=== PATIENT | female | born 1975 | race Caucasian/White ===

== ENCOUNTER 2020-04-01 21:54 | Emergency (ER) | payer OTHER, SELFPAY ==
--- NOTE | ~2020-04-01 | XR_ITS ---
XR abdomen/kub 1V DATE: 04/02/2020 00:48 INDICATION: Constipation TECHNIQUE: Portable supine AP view on 04/02/2020 at 0052 hours COMPARISON: None FINDINGS: There is a prominent amount of fecal material in the cecum, ascending colon, hepatic flexur e, transverse colon and splenic flexure. Findings are consistent with constipation. No apparent bowel obstruction or free air. The psoas shadows are intact. No visceromegaly or significant abnormal calcification is noted. Included skeletal structures are unremarkable. IMPRESSION: Prominent of fecal material within the colon, consistent with clinical complaint of const ipation Reviewed, dictated and finalized at [facility]. Reviewed, dictated and finalized at [facility]. IMPRESSION: Prominent of fecal material within the colon, consistent with clini venice complaint of constipation
--- NOTE | 2020-04-01 22:40 | ED.HA ---
HPI - Headache General Chief Complaint: Headache Stated Complaint: migrane Time Seen by Provider: 04/01/20 22:40 Source: patient and RN notes reviewed Mode of arrival: ambulatory Limitations: no limitations History of Present Illness HPI Narrative: patient complains of possible migraine. She says she has not urinated much and has problems with constipation. This could be due to her relapse with heroin in the last week. She is taking methadone also. She believes her constipation is from methadone. She went to another hospital where she became upset and left AMA prior to any treatment for her headache. She thinks she really does need some fluids. MD elicited complaint: migraine Pertinent past history: migraines Onset description: suddenly and while at rest Location: retro-orbital Severity: moderate Quality & Timing: throbbing and dull Exacerbating factors: none Relieving factors: nothing Context: occurred at rest Associated symptoms: nausea Treatments prior to arrival: none Related Data Home Medications Medication Instructions Recorded Confirmed clonidine HCl 0.3 mg PO TID 04/01/20 04/01/20 gabapentin 300 mg PO HS 04/01/20 04/01/20 ondansetron HCl [Zofran] 8 mg PO Q8H PRN 04/01/20 04/01/20 rizatriptan 10 mg PO ONCE 04/01/20 04/01/20 venlafaxine 150 mg PO DAILY 04/01/20 04/01/20 Allergies Allergy/AdvReac Type Severity Reaction Status Date / Time ceftriaxone [From Rocephin] Allergy Flushing Verified 04/01/20 23:02 cortisone Allergy Flushing Verified 04/01/20 23:02 levofloxacin [From Levaquin] Allergy Flushing Verified 04/01/20 23:02 tramadol Allergy Flushing Verified 04/01/20 23:02 Review of Systems Constitutional: Constitutional: Denies chills and Denies fever(s) Eyes: Eyes: Denies change in vision and Reports photophobia ENT: Reports dizziness Cardiovascular: Cardiovascular: Reports no additional cardiovascular complaints Respiratory: Respiratory: Reports no additional respiratory complaints Gastrointestinal: Gastrointestinal: Reports constipation, Denies diarrhea and Denies vomiting Comments: patient thinks the methadone is causing her constipation. Musculoskeletal: Musculoskeletal: Reports no additional musculoskeletal complaints Psychiatric: Psychiatric: Reports no additional psychiatric complaints Endocrine: Endocrine: Reports no additional endocrine complaints Hematologic/Lymphatic: Hematologic/Lymphatic: Reports no additional hematologic/lymphatic complaints [facility] Past Medical History Medical History (Updated 04/02/20 @ 03:35 by Catalino Dong MD) COPD (chronic obstructive pulmonary disease) Surgical History Surgical History (Updated 04/01/20 @ 22:58 by Catalino Dong MD) H/O knee surgery H/O: hysterectomy History of lumpectomy of left breast History of tonsillectomy Social History Social History (Updated 04/01/20 @ 22:57 by Catalino Dong MD) Smoking packs per day: 1.5 Smoking cigarettes per day: 30.0 Smoking status: Current every day smoker Tobacco type: cigarettes Alcohol intake: never Substance use: current Substance use type: heroin and IV drugs Exam Const: General: no acute distress and ill appearing Orientation/consciousness: patient oriented x3 HENMT: Head: normal to inspection Ears: external ears normal General nose exam: Normal external nose present Face and sinus: normal facial exam Mouth: Yes lip normal Eyes: Conjunctivae: conjunctivae normal Pupils: Equal, round and reactive pupils present EOM: EOMs intact bilaterally Direct Ophthalmoscopy: photophobia Neck: Neck: normal visual inspection Resp: Effort & Inspection: normal respiratory effort Auscultation: clear to auscultation bilaterally Cardio: Rate: regular rate Rhythm: regular rhythm Heart sounds: no murmurs GI: GI Palp: Yes Soft to palpation, Yes Tenderness to palpation present (GI) ( Mild generalized), No Guarding due to palpation present (GI) and No Rigid due to palp
[2020-04-01 22:52] VITALS: BP 154/84; PULSE 108; RESP 22; TEMP 36.9; O2SAT 98
[2020-04-02] MEDS: ONDANSETRON HCL ODT 4 MG TABLET PO (00:06)
--- NOTE | 2020-04-02 00:06 | PC.NURSE ---
IV attempted in [facility] arms & legs, unsucessful. patient has track perez in legs & arms used heroin today.
--- NOTE | 2020-04-02 00:25 | PC.NURSE ---
pedilyte given to patient, patient crying rocking on bed. reassurance given
--- NOTE | 2020-04-02 00:27 | PC.NURSE ---
patient pushed emergency light, standing on bed taking clock down, said it was making her head hurt & more nauseated.
[2020-04-02 00:32] VITALS: BP 140/84; PULSE 99; RESP 18; TEMP 36.2
--- NOTE | 2020-04-02 00:34 | PC.NURSE ---
0030patient turned on emergency light, wants to know she has the worst headache ever & everyone in her family has had brain anerysms 0035 MD with patient
--- NOTE | 2020-04-02 01:22 | PC.NURSE ---
0100 soap suds enema given
--- NOTE | 2020-04-02 01:24 | PC.NURSE ---
spouse updated on condition
--- NOTE | 2020-04-02 01:43 | PC.NURSE ---
0130 torodal 60mg IM left hip
--- NOTE | 2020-04-02 01:43 | PC.NURSE ---
2ns SSE given, small results from first SSE
--- NOTE | 2020-04-02 02:05 | PC.NURSE ---
ativan 1mg IM right gluteal
--- NOTE | 2020-04-02 02:06 | PC.NURSE ---
saline enema given
--- NOTE | 2020-04-02 02:46 | PC.NURSE ---
patient came out of bathroom, small BM, scant blood on toilet paper..started crying said I need my ran out the door.
[2020-04-02 03:00] VITALS: BP 130/77; PULSE 70; RESP 18; TEMP 36.1
--- NOTE | 2020-04-02 03:11 | PC.NURSE ---
0300 patient back in, small BM. Drinking soda, no nausea
--- NOTE | 2020-04-02 03:31 | PC.NURSE ---
several small BM's. drinking MD rudy with patient
[2020-04-02 03:40] VITALS: BP 144/60; PULSE 70; RESP 18; TEMP 36.9; O2SAT 95
== END 2020-04-02 03:31 | disposition home or self-care (01) ==
PROVIDERS: Emergency Provider Emergency Medicine
DX: K59.03 Drug induced constipation (principal)
CPT/HCPCS: 74018; 99282; 99283; A9270

== ENCOUNTER 2020-08-19 12:09 | Outpatient (CLI) | payer OTHER, SELFPAY ==
[2020-08-20 14:21] LABS: SARS-CoV-2 RNA PCR Negative
== END 2020-08-19 12:10 | disposition home or self-care (01) ==
LOC: CHSLAB 12:11
PROVIDERS: PCP Nurse Practitioner Family; Visit Provider Nurse Practitioner Family
DX: R50.9 Fever, unspecified (principal); Z20.828 Contact with and (suspected) exposure to other viral communicable diseases
CPT/HCPCS: 87635; C9803; U0003

== ENCOUNTER 2021-02-06 17:07 | Inpatient (IN) | payer OTHER, SELFPAY ==
--- NOTE | ~2021-02-06 | XR_ITS ---
EXAMINATION: XR chest 2V DATE: 02/06/2021 17:39 INDICATION: Vomiting. Fever. TECHNIQUE: Frontal and lateral views of the chest were obtained. COMPARISON: None. FINDINGS: There are lucencies in the upper lungs, consistent with emphysema. No pleural effusion or p neumothorax. The heart size is normal. Breast implants are noted. IMPRESSION: 1. Emphysema. Reviewed, dictated and finalized at location [facility]. IMPRESSION: 1. Emphysema.
--- NOTE | ~2021-02-06 | MR_ITS ---
EXAMINATION: MR lower leg RT wo con, MR femur RT wo con DATE: 02/08/2021 10:13 INDICATION: Multiple surgeries at the right leg with prior osteomyelitis presenting with nonhealing w ounds at the right calf. TECHNIQUE: 1. Magnetic resonance imaging (MRI) of the right thigh/femur was performed without intravenous contra st. Sequences included axial, sagittal and coronal T1-weighted FSE and fluid sensitive FSE STIR. 2. MRI of the right lower leg was performed without intravenous contrast. Sequences included axial, s agittal and coronal T1-weighted FSE and fluid sensitive FSE STIR. COMPARISON: None. FINDINGS: There is metallic magnetic field artifact surrounding a likely revision longstem right total knee art hroplasty. Where not obscured by the field artifact there is normal marrow signal throughout the femu r, tibia and fibula. No fracture or other lesions suspicious for osteomyelitis. There is scattered henao bcutaneous edema along the lateral aspect of the mid to distal right thigh extending across the knee and with more diffuse subcutaneous edema throughout the left calf. Bandaging material is seen at the sites of ulcerations along the anterior proximal lower leg along the medial aspect of the mid lower l eg. No abscess or evident involvement of the underlying musculature. No evident right knee or hip frankie nt effusions. A few small likely reactive right inguinal lymph nodes. IMPRESSION: 1. Subcutaneous edema along the lateral right thigh and about the right calf. No evident abscess or o steomyelitis. 2. Likely revision right total knee arthroplasty with metallic magnetic field artifact limiting evalu ation of the immediately adjacent bones and soft tissues. Although there does not appear to be a join t effusion or evident marrow signal changes to raise concern for osteomyelitis, would recommend corre lation with plain radiographs. Reviewed, dictated and finalized at location [facility]. IMPRESSION: 1. Subcutaneous edema along the lateral right thigh and about the right calf. N o evident abscess or osteomyelitis. 2. Likely revision right total knee arthroplasty with metallic magnetic field a rtifact limiting evaluation of the immediately adjacent bones and soft tissues. Although there does not appear to be a joint effusion or evident marrow signal changes to raise concern for osteomyelitis, would recommend correlation with p andrei radiographs.
[2021-02-06 17:15] VITALS: BP 153/93; PULSE 90; RESP 18; TEMP 36.6; O2SAT 95
--- NOTE | 2021-02-06 17:20 | ED.SKABFB ---
HPI - Skin/Abscess/Foreign Bdy General Chief complaint: Unspecified Stated complaint: sent by doctor for infection in legs Time Seen by Provider: 02/06/21 17:21 Source: patient Mode of arrival: ambulatory Limitations: no limitations History of Present Illness HPI narrative: 45-year-old woman with a history of injection drug use (opiates) comes in today complaining of draining wounds on her right lower leg. She states that week or 2 ago she was seen at [facility] in [place] prescribed sulfamethoxazole/trimethoprim. A culture was done at that time per the patient. She began to take the antibiotic but quit after a day or 2 because she began to have mouth swelling. The patient states she was instructed by the wound care clinic to come to the hospital for further evaluation and treatment. She states that she has had vomiting (but has been able to keep some things down) and is feeling feverish. MD complaint: abscess/boil Onset (ago): week(s) Tetanus up to date: unsure Location: RLE Severity: moderate Quality: sharp Pain Consistency: constant Relieving factors: none Exacerbating factors: palpation and movement Context: IVDA Associated symptoms: fever, nausea and vomiting Treatments prior to arrival: bandages and antibiotic Related Data Home Medications Medication Instructions Recorded Confirmed clonidine HCl 0.3 mg PO TID 04/01/20 02/06/21 venlafaxine [Effexor XR] 150 mg PO DAILY 04/01/20 02/06/21 linaclotide [Linzess] 290 mcg PO BID 02/06/21 02/06/21 Allergies Allergy/AdvReac Type Severity Reaction Status Date / Time ceftriaxone [From Rocephin] Allergy Flushing Verified 04/01/20 23:02 cortisone Allergy Flushing Verified 04/01/20 23:02 levofloxacin [From Levaquin] Allergy Flushing Verified 04/01/20 23:02 Sulfa (Sulfonamide Allergy Swelling Verified 02/06/21 17:29 Antibiotics) of Lip/Tongue/Throat tramadol Allergy Flushing Verified 04/01/20 23:02 Review of Systems Constitutional: Constitutional: Denies chills, Reports fever(s) and Denies weakness Eyes: Eyes: Denies change in vision and Denies photophobia ENT: Denies nasal congestion and Denies sore throat Cardiovascular: Cardiovascular: Denies chest pain and Denies radiating jaw, neck or arm pain Respiratory: Respiratory: Denies cough and Denies dyspnea Gastrointestinal: Gastrointestinal: Reports abdominal pain (epigastric), Reports nausea and Reports vomiting Genitourinary: Genitourinary: Denies nocturia and Denies dysuria Musculoskeletal: Musculoskeletal: Denies arthralgias and Denies joint swelling Integumentary/Breasts: Skin/Breast: Denies pruritus, Denies erythema and Denies rash Neurologic: Denies vertigo, Denies dizziness, Denies syncope, Denies focal weakness and Denies numbness Hematologic/Lymphatic: Hematologic/Lymphatic: Denies easy bleeding and Denies easy bruising Allergic/Immunologic: Allergic/Immunologic: Denies lip swelling, Denies throat swelling and Reports tongue swelling (after taking SMP/TMX) [facility] Past Medical History Medical History COPD (chronic obstructive pulmonary disease) Surgical History Surgical History H/O knee surgery H/O: hysterectomy History of lumpectomy of left breast History of tonsillectomy Social History Social History Smoking packs per day: 1.5 Smoking cigarettes per day: 30.0 Smoking status: Current every day smoker Tobacco type: cigarettes Alcohol intake: never Substance use: current Substance use type: heroin and IV drugs Gender identity (if verbalized by the patient): Male Exam Const: General: no acute distress and ill appearing chronically Orientation/consciousness: patient oriented x3 HENMT: Head: normal to inspection Ears: external ears normal, TM's normal bilaterally and EAC's normal Gen
--- NOTE | 2021-02-06 17:24 | PC.NURSE ---
called [facility] requesting copies of recent lab test, medical records closed & the washhouse worker stated she only had access to ED records and current inpatient records would have to call during business hours
--- NOTE | 2021-02-06 17:41 | PC.NURSE ---
opened home meds & list from [facility] was issued clindamycin today, patient lying about medications
[2021-02-06] MEDS: SODIUM CHLORIDE 0.9% IV 1,000 ML 999 ML IV CONT (18:00)
[2021-02-06 18:19] LABS: Basophils Absolute Auto 0.04 K/mm3 (0.00-0.10); Basophils Percent Auto 0.4 % (0.0-1.0); Eosinophils Absolute Auto 0.36 K/mm3 (0.02-0.50); Hematocrit 30.1 % (35.0-49.0); Hemoglobin 8.9 g/dL (12.0-15.0); Immature Granulocyte Absolute 0.02 K/mm3 (0.00-0.00); Immature Granulocyte Percent A 0.2 % (0.0-0.0); Lymphocytes Absolute Auto 3.17 K/mm3 (1.10-4.50); Lymphocytes Percent Auto 35.4 % (18.0-42.0); Mean Corpuscular HGB Conc 29.6 g/dL (32.0-36.0); Mean Corpuscular Hemoglobin 23.6 pg (27.0-31.0); Mean Corpuscular Volume 79.8 fL (78.0-102.0); Mean Platelet Volume 8.8 fl (9.2-11.8); Monocytes Absolute Auto 0.59 K/mm3 (0.10-0.90); Monocytes Percent Auto 6.6 % (2.0-11.0); Neutrophils Absolute Auto 4.8 K/mm3 (1.7-7.2); Neutrophils Percent Auto 53.4 % (50.0-70.0); Platelet Count Result 447 K/mm3 (150-420); Red Blood Count 3.77 M/mm3 (4.20-5.40); Red Cell Distribution Width 15.3 % (11.6-14.4)
[2021-02-06 18:29] LABS: Add Urine Microscopic? YES; Appearance Urine Clear (Clear); Bilirubin Urine Negative (Negative); Blood Urine Negative (Negative); Color Urine Yellow (Yellow); Glucose Urine UA Negative (Negative); Ketones Urine Negative (Negative); Leukocyte Esterase Ur Trace LEU/UL (Negative); Nitrate Urine Negative (Negative); Protein Urine Negative (Negative); Specific Grav Ur <= 1.005 (1.010-1.020); Urobilinogen Urine 0.2 mg/dL (0.2-1.0)
[2021-02-06 18:32] LABS: Alanine Aminotransferase 17 U/L (14-59); Alkaline Phosphatase 161 U/L (46-116); Anion Gap 7 mmol/L (8-16); Aspartate Amino Transferase 13 U/L (15-37); Bilirubin,Total 0.2 mg/dL (0.00-1.00); Blood Urea Nitrogen 15 mg/dL (7-18); CRP 9.3 mg/dL (0.0-0.9); Calcium 8.9 mg/dL (8.5-10.1); Carbon Dioxide 28 mmol/L (21-32); Chloride 99 mmol/L (98-108); Estimated CRCL calculation 72 ml/min; Estimated Glomerular Filt Rate > 60; Glucose 117 mg/dL (70-99); Osmolality Calculated 279 mOsm/kg (285-295); Potassium 3.6 mmol/L (3.5-5.1); Sodium 134 mmol/L (136-145); Total Protein 7.8 g/dL (6.4-8.2)
[2021-02-06 18:33] LABS: RBC Urine 0-2 /hpf (0-2); Squamous Epithelial Cell Urine Few /hpf (Few); WBC Urine 0-3 /hpf (0-3)
[2021-02-06 18:34] LABS: Partial Thromboplastin Time 29.8 SEC (23.90-30.70); Prothrombin Time 10.4 Seconds (9.50-12.10)
[2021-02-06 18:34] LABS: Bacteria Urine Trace /hpf
[2021-02-06 18:37] LABS: Lactic Acid Reflex 1.5 mmol/L (0.4-2.0)
[2021-02-06 19:00] LABS: Lactate Dehydrogenase 190 U/L (81-234)
[2021-02-06 19:35] VITALS: BP 140/90; PULSE 94; RESP 18; TEMP 36.6; O2SAT 96
--- NOTE | 2021-02-06 19:38 | PC.NURSE ---
1932 Edy complete, c/o itching now. notified, Karrie notified
--- NOTE | 2021-02-06 20:33 | PC.NURSE ---
Patient admitted to room 209 per w/c, is alert and oriented and ambulates independently.
[2021-02-06 20:35] VITALS: BMI 22.4
--- NOTE | 2021-02-06 22:22 | PC.NURSE ---
Patient will ask significant other to bring in linzess on 02/07
[2021-02-06] MEDS: ACETAMINOPHEN 500 MG TABLET 1000 MG PO (23:18)
[2021-02-06] MEDS: traZODone HCL 50 MG TABLET PO (23:19)
[2021-02-06 23:28] VITALS: BP 96/52; PULSE 56; RESP 20; TEMP 36.8; O2SAT 98
[2021-02-07] MEDS: VENLAFAXINE HCL XR 75 MG CAP.ER.24H 150 MG PO ×2 (00:11→21:08)
[2021-02-07] MEDS: cloNIDine HCL 0.2 MG TABLET 0.3 MG PO (00:39)
[2021-02-07 06:42] LABS: Basophils Absolute Auto 0.06 K/mm3 (0.00-0.10); Basophils Percent Auto 0.8 % (0.0-1.0); Eosinophils Absolute Auto 0.33 K/mm3 (0.02-0.50); Eosinophils Percent Auto 4.7 % (1.0-6.0); Hemoglobin 8.3 g/dL (12.0-15.0); Immature Granulocyte Absolute 0.04 K/mm3 (0.00-0.00); Immature Granulocyte Percent A 0.6 % (0.0-0.0); Lymphocytes Absolute Auto 2.84 K/mm3 (1.10-4.50); Lymphocytes Percent Auto 40.1 % (18.0-42.0); Mean Corpuscular HGB Conc 29.6 g/dL (32.0-36.0); Mean Corpuscular Hemoglobin 23.6 pg (27.0-31.0); Mean Corpuscular Volume 79.5 fL (78.0-102.0); Mean Platelet Volume 9.1 fl (9.2-11.8); Monocytes Absolute Auto 0.53 K/mm3 (0.10-0.90); Monocytes Percent Auto 7.5 % (2.0-11.0); Neutrophils Absolute Auto 3.3 K/mm3 (1.7-7.2); Neutrophils Percent Auto 46.3 % (50.0-70.0); Platelet Count Result 435 K/mm3 (150-420); Red Blood Count 3.52 M/mm3 (4.20-5.40); Red Cell Distribution Width 15.4 % (11.6-14.4); White Blood Count 7.1 K/mm3 (4.8-10.8)
--- NOTE | 2021-02-07 07:00 | ECHO_ITS ---
Patient Info Name: Reina Gottlieb Age: 45 years : 1975 Gender: Female Ht: 66 in Wt: 138 lbs BSA: 1.71 m2 HR: 81 bpm BP: 92 / 65 mmHg Heart Rhythm: Sinus Rhythm Technical Quality: Good Exam Date: 02/07/2021 9:56 AM Exam Location: [facility] Patient Status: Inpatient Admit Date: 02/06/2021 Staff Ordering Physician: Nicolas Tejada MD Dovetailer: Daiana Lance RDCS Attending Provider: Nicolas Tejada MD Referring Physician: eTrrell VARGAS; Exam Type: CA echo doppler color flow Study Info Indications R01.1 - Cardiac murmur, unspecified Complete two-dimensional, color flow and Doppler transthoracic echocardiogram is performed. Strain analysis performed. History/Risk Factors COPD: On Meds Tobacco Use: Current - Every Day If Any Current, Tobacco Type: Cigarettes If Current - Every Day \T\ Cigarettes, Amount: Heavy Tobacco Use (>=10/day) Summary 1. Complete two-dimensional, color flow and Doppler transthoracic echocardiogram is performed. 2. Left ventricular chamber dimension is normal. 3. Left ventricular systolic function is normal, estimated at 60-65%. 4. The left ventricular diastolic function is normal. 5. E/e' 7 is not elevated. 6. Global longitudinal strain is normal at -19.1%. 7. There is trace mitral valve regurgitation. 8. There is trace tricuspid valve regurgitation. 9. Mild pulmonary hypertension, estimated pulmonary arterial systolic pressure is 49 mmHg. 10. There is trace pulmonic regurgitation. Recommendations * Smoking cessation counseling is recommended for this patient. Left Ventricle E/e' 7 is not elevated. Global longitudinal strain is normal at -19.1%. Left ventricular chamber dimension is normal. Left ventricular systolic function is normal, estimated at 60-65%. The left ventricular diastolic function is normal. Right Ventricle Right ventricular chamber dimension is normal. Right ventricular systolic function is normal. Left Atria Left atrial chamber dimension is normal. Right Atria Right atrial chamber dimension is normal. Aortic Valve The aortic valve is trileaflet. There is no aortic valve stenosis. There is no aortic valve regurgitation. Pulmonic Valve There is trace pulmonic regurgitation. Mitral Valve There is no mitral valve stenosis. There is trace mitral valve regurgitation. Tricuspid Valve There is trace tricuspid valve regurgitation. Mild pulmonary hypertension, estimated pulmonary arterial systolic pressure is 49 mmHg. Pericardium/Pleural There is no pericardial effusion. Inferior Vena Cava Normal inferior vena cava with >50% collapse upon inspiration consistent with normal right atrial pressure, 5 mmHg. Aorta The aortic root size at the sinus of Valsalva is normal. Left Ventricular Outflow Tract Name Value Normal LVOT 2D LVOT Diameter 1.8 cm LVOT Doppler LVOT Peak Velocity 132 cm/s LVOT Peak Gradient 7 mmHg LVOT Mean Gradient 3 mmHg LVOT VTI 31 cm
[2021-02-07 07:07] LABS: Alkaline Phosphatase 142 U/L (46-116); Anion Gap 10 mmol/L (8-16); Aspartate Amino Transferase 14 U/L (15-37); Bilirubin,Total 0.2 mg/dL (0.00-1.00); Blood Urea Nitrogen 10 mg/dL (7-18); Calcium 8.5 mg/dL (8.5-10.1); Carbon Dioxide 25 mmol/L (21-32); Chloride 103 mmol/L (98-108); Estimated CRCL calculation 69 ml/min; Estimated Glomerular Filt Rate > 60; Glucose 111 mg/dL (70-99); Osmolality Calculated 286 mOsm/kg (285-295); Sodium 138 mmol/L (136-145)
[2021-02-07 07:16] LABS: Alanine Aminotransferase 15 U/L (14-59); Albumin Level 2.7 g/dL (3.4-5.0)
[2021-02-07 08:00] VITALS: BP 92/65; PULSE 81; RESP 18; TEMP 36.4; O2SAT 95
[2021-02-07] MEDS: ENOXAPARIN 40 MG/0.4 ML SYRINGE SUB-Q (09:31)
[2021-02-07] MEDS: ACETAMINOPHEN 500 MG TABLET 1000 MG PO (09:31)
--- NOTE | 2021-02-07 12:02 | PM.IMHP ---
H&P: HPI History of Present Illness Date/Time: 02/07/21 12:00 Reina Gottlieb is a 45 y /o female who comes to us from a recommendation from her wound clinic providers for evaluation of right leg swelling and drainage. Pt states that the swelling started in her hands and feet/legs after she started taking Bactrim for her leg infection. Pt states and KAROL Albert from the wound clinic, confirms that a wound Cx was obtained yesterday. KAROL Albert also stated that after the Pt complained of tongue swelling/hands/feet swelling after starting the Bactrim an order was placed for Linzolide 600 mg BID, Clindamycin 600 mg TID, and Florastor BID for 30 days. Pt has no complaints of leg pain other then when pressure is applied to the LEs. Pt denies SOB, CP, abdominal issues at this time but admits she was nauseated with minimal vomiting recently. Pt admits to IV drug use stating she started this after she had her right knee replacement completed and she was not able to get pain medications. KAROL Albert from wound care informed me that the Pt has missed 2 of her last 3 appointments but did come yesterday for an appointment. Pt states that she wants to be DC'ed INDERJIT and if she has to stay in the hospital too long she will leave. Chief Complaint: Infection to LLE Review of Systems Constitutional: Constitutional: Reports no additional constitutional complaints ENT: Reports system reviewed and no additional complaints, except as documented, Denies vertigo, Denies dizziness, Denies neck pain and Denies tongue swelling (swelling resolved once Pt stopped taking Bactrim) Cardiovascular: Cardiovascular: Reports no additional cardiovascular complaints, Denies chest pain, Denies chest pain at rest and Denies chest pain with activity Respiratory: Respiratory: Reports no additional respiratory complaints, Denies chest congestion, Denies dyspnea and Denies dyspnea on exertion Gastrointestinal: Gastrointestinal: Reports no additional gastrointestinal complaints Genitourinary: Genitourinary: Reports no additional female genitourinary complaints Musculoskeletal: Comments: some pain in LEs d/t swelling, Rt>Lt with drainage from various places on the Rt LE. Neurologic: Reports system reviewed and no additional complaints, except as documented, Denies vertigo, Denies dizziness and Denies syncope Psychiatric: Psychiatric: Reports no additional psychiatric complaints Hematologic/Lymphatic: Hematologic/Lymphatic: Reports no additional hematologic/lymphatic complaints PMF[facility] Past Medical History Medical History COPD (chronic obstructive pulmonary disease) Surgical History Surgical History H/O knee surgery H/O: hysterectomy History of lumpectomy of left breast History of tonsillectomy Social History Social History Smoking packs per day: 1.5 Smoking cigarettes per day: 30.0 Smoking status: Current every day smoker Tobacco type: cigarettes Second hand tobacco smoke exposure: Yes Alcohol intake: unknown Substance use: current Substance use type: opiates Gender identity (if verbalized by the patient): Female Spiritual care concerns: No Meds Home Medications and Allergies Home Medications Medication Instructions Recorded Confirmed Type clonidine HCl 0.3 mg PO TID 04/01/20 02/06/21 History venlafaxine [Effexor XR] 150 mg PO DAILY 04/01/20 02/06/21 History linaclotide [Linzess] 290 mcg PO BID 02/06/21 02/06/21 History Allergies Allergy/AdvReac Type Severity Reaction Status Date / Time ceftriaxone [From Rocephin] Allergy Flushing Verified 04/01/20 23:02 cortisone Allergy Flushing Verified 04/01/20 23:02 levofloxacin [From Levaquin] Allergy Flushing Verified 04/01/20 23:02 Sulfa (Sulfonamide Allergy Swelling Verified 02/06/21 17:29 Antibiotics) of Lip/Tongue/Throat tramadol
[2021-02-07 14:54] LABS: Ferritin 57 ng/mL (8-252); Folic Acid 4.5 ng/mL (8.6->20); Iron 23 ug/dL (50-170); Percent Iron Saturation 10 % (12-57); Vitamin B12 482 pg/mL (193-986)
[2021-02-07 15:39] VITALS: BP 112/60; PULSE 60; RESP 18; TEMP 36.5; O2SAT 99
[2021-02-07 15:43] LABS: Thyroid Stimulating Hormone Reflex 1.25 u/IU/mL (0.36-3.74)
[2021-02-07] MEDS: traZODone HCL 50 MG TABLET PO (21:02)
[2021-02-07] MEDS: LORazepam INJ (*CRX) 2 MG/ML VIAL 0.5 MG IV PUSH (21:07)
[2021-02-07] MEDS: COLLAGENASE OINT 30 GM TUBE 1 APPLIC TOPICAL (21:07)
[2021-02-07 23:21] VITALS: BP 115/69; PULSE 50; RESP 18; TEMP 36.6; O2SAT 100
[2021-02-08 05:31] LABS: Basophils Absolute Auto 0.05 K/mm3 (0.00-0.10); Basophils Percent Auto 0.7 % (0.0-1.0); Eosinophils Percent Auto 4.1 % (1.0-6.0); Hematocrit 28.6 % (35.0-49.0); Hemoglobin 8.4 g/dL (12.0-15.0); Immature Granulocyte Absolute 0.02 K/mm3 (0.00-0.00); Immature Granulocyte Percent A 0.3 % (0.0-0.0); Lymphocytes Absolute Auto 2.38 K/mm3 (1.10-4.50); Lymphocytes Percent Auto 32.7 % (18.0-42.0); Mean Corpuscular HGB Conc 29.4 g/dL (32.0-36.0); Mean Corpuscular Hemoglobin 23.5 pg (27.0-31.0); Mean Corpuscular Volume 80.1 fL (78.0-102.0); Mean Platelet Volume 9.1 fl (9.2-11.8); Monocytes Percent Auto 6.9 % (2.0-11.0); Neutrophils Percent Auto 55.3 % (50.0-70.0); Platelet Count Result 424 K/mm3 (150-420); Red Blood Count 3.57 M/mm3 (4.20-5.40); Red Cell Distribution Width 15.3 % (11.6-14.4); White Blood Count 7.3 K/mm3 (4.8-10.8)
[2021-02-08 05:47] LABS: Alanine Aminotransferase 15 U/L (14-59); Albumin Level 2.7 g/dL (3.4-5.0); Alkaline Phosphatase 138 U/L (46-116); Anion Gap 9 mmol/L (8-16); Aspartate Amino Transferase 13 U/L (15-37); Bilirubin,Total 0.2 mg/dL (0.00-1.00); Blood Urea Nitrogen 10 mg/dL (7-18); Calcium 8.6 mg/dL (8.5-10.1); Carbon Dioxide 26 mmol/L (21-32); Chloride 101 mmol/L (98-108); Estimated CRCL calculation 68 ml/min; Estimated Glomerular Filt Rate > 60; Glucose 93 mg/dL (70-99); Osmolality Calculated 281 mOsm/kg (285-295); Potassium 4.4 mmol/L (3.5-5.1); Sodium 136 mmol/L (136-145); Total Protein 7.3 g/dL (6.4-8.2)
[2021-02-08] MEDS: cloNIDine HCL 0.2 MG TABLET 0.3 MG PO ×2 (06:29→13:24)
[2021-02-08] MEDS: ENOXAPARIN 40 MG/0.4 ML SYRINGE SUB-Q (07:57)
[2021-02-08 08:00] VITALS: BP 125/80; PULSE 67; RESP 16; TEMP 36.4; O2SAT 98
--- NOTE | 2021-02-08 08:11 | PHAR ---
VERIFIED PT.'S HOME MED LINZESS [employer] CAPSULE. TLS
[2021-02-08] MEDS: LORazepam INJ (*CRX) 2 MG/ML VIAL 0.5 MG IV PUSH ×2 (10:14→22:10)
[2021-02-08] MEDS: FERROUS SULFATE 324 MG TABLET PO ×2 (10:40→17:12)
--- NOTE | 2021-02-08 14:05 | PM.IMPN ---
Progress Note: A&P Assessment and Plan (1) Abscess of leg, right: Code(s): L02.415 - Cutaneous abscess of right lower limb Status: Acute Assessment and Plan: 02/07/2021 Wound Cx taken at outside wound clinic yesterday, will be looking for results, [facility] phone number [phone] leave message and they will call back within about 30 minutes, Pt was going to be started on Linezolid 600 mg BID, Clindamycin 600 mg TID, and Florastor BID for 30 days but is seems like Pt did not pick this up but came to ER instead, Wound Clinic recommended Santyl with dressing change BID. Blood Cx x 2 pending at this facility 02/08/2021 MRI results: no osteomyelitis, no abscess, continue with Ab at this time (2) Anemia: Qualifiers: Anemia type: unspecified type Qualified Code(s): D64.9 - Anemia, unspecified Code(s): D64.9 - Anemia, unspecified Status: Acute Assessment and Plan: 02/07/2021 current H/H 8.3/28 which may be a little dilutional d/t Pt getting 1 L NS bolus in ER, will monitor H/H, transfuse if Hgb falls below 7, no obvious bleeding, Pt states she has not had any blood work in a long time, will order anemia workup 02/08/2021 Stable H/H 8.4/28.6, will continue to monitor (3) HTN (hypertension): Code(s): I10 - Essential (primary) hypertension Status: Acute Assessment and Plan: 02/07/2021 Continue with home medication Clonidine, monitor VS, make adjustments as needed. 02/08/2021 Clonidine was held a couple times yesterday AM. (4) IVDU (intravenous drug user): Code(s): F19.90 - Other psychoactive substance use, unspecified, uncomplicated Status: Acute Assessment and Plan: 02/07/2021 Pt states that she is currently using IV drugs and has no interest at this time of rehabilitation, states she has been to rehabilitation in the past a couple times, Ativan 0.5 Q6H PRN for withdrawal 02/08/2021 [facility] saw the Pt yesterday and left some literature for the Pt though she did not seem interest and states she did not want to have rehab at this time and stated she had been to rehab a few times in the past. (5) Heart murmur, systolic: Code(s): R01.1 - Cardiac murmur, unspecified Status: Acute Assessment and Plan: 02/07/2021 Slight systolic murmur, Echo obtained today but not read at this time. 02/08/2021 Echo results: Summary 1. Complete two-dimensional, color flow and Doppler transthoracic echocardiogram is performed. 2. Left ventricular chamber dimension is normal. 3. Left ventricular systolic function is normal, estimated at 60-65%. 4. The left ventricular diastolic function is normal. 5. E/e' 7 is not elevated. 6. Global longitudinal strain is normal at -19.1%. 7. There is trace mitral valve regurgitation. 8. There is trace tricuspid valve regurgitation. 9. Mild pulmonary hypertension, estimated pulmonary arterial systolic pressure is 49 mmHg. 10. There is trace pulmonic regurgitation. Subjective Date/time seen: 02/08/21 14:05 Pt is eager to go home and states that she will go home soon. I reminded her that since she has had osteomyelitis in the past that it would be kraft to wait for those results and the fact that she is currently on IV Ab for her leg infection. She then asked what are the odds of going home tomorrow. I did inform her that I will be talking with the ER doctor tomorrow regarding DC plans and the possibility of outpatient IV therapy. Pt does not complain of any pain at this time. She has not displayed any withdrawal signs/symptoms for me today. Review of Systems Constitutional: Constitutional: Reports no additional constitutional complaints Eyes: Eyes: Reports no additional eye complaints ENT: Reports system reviewed and no additional complaints, except as documented Cardiovascular: Cardiovascular: Reports no additional cardiovascular complaints, Denies chest pain, Denies chest pain
--- NOTE | 2021-02-08 14:08 | PC.NURSE ---
Attempted to provide wound treatments to lower extremities. When nurse removed old dressing patient refused to have removed. Patient informed nurse that it was not time to do the treatment and that was going to bring more bandages. has yet to visit and bring replacement bandages.
[2021-02-08 16:00] VITALS: BP 98/51; PULSE 61; RESP 18; TEMP 36.6; O2SAT 96
--- NOTE | 2021-02-08 18:48 | PC.NURSE ---
closed vancomycin in MAR per Joan's intructions, even though already documented in notes
[2021-02-08] MEDS: COLLAGENASE OINT 30 GM TUBE 1 APPLIC TOPICAL (20:23)
--- NOTE | 2021-02-08 20:30 | PC.NURSE ---
States she is going home tomorrow, she can't stay here because she can't get done
[2021-02-08] MEDS: VENLAFAXINE HCL XR 75 MG CAP.ER.24H 150 MG PO (20:32)
[2021-02-08] MEDS: traZODone HCL 50 MG TABLET PO (20:32)
[2021-02-09 00:30] VITALS: BP 113/63; PULSE 65; RESP 18; TEMP 36.4; O2SAT 99
--- NOTE | 2021-02-09 01:37 | PC.NURSE ---
pt sleeping, no evidence of distress noted, belongings within reach
[2021-02-09] MEDS: cloNIDine HCL 0.2 MG TABLET 0.3 MG PO ×2 (05:46→14:16)
[2021-02-09 05:50] LABS: Hematocrit 27.9 % (35.0-49.0); Hemoglobin 8.3 g/dL (12.0-15.0); Mean Corpuscular HGB Conc 29.7 g/dL (32.0-36.0); Mean Corpuscular Hemoglobin 23.7 pg (27.0-31.0); Mean Corpuscular Volume 79.7 fL (78.0-102.0); Mean Platelet Volume 8.7 fl (9.2-11.8); Platelet Count Result 383 K/mm3 (150-420); Red Cell Distribution Width 15.3 % (11.6-14.4); White Blood Count 6.8 K/mm3 (4.8-10.8)
[2021-02-09 06:04] LABS: Anion Gap 7 mmol/L (8-16); Blood Urea Nitrogen 8 mg/dL (7-18); Calcium 8.6 mg/dL (8.5-10.1); Carbon Dioxide 27 mmol/L (21-32); Chloride 103 mmol/L (98-108); Estimated CRCL calculation 66 ml/min; Estimated Glomerular Filt Rate > 60; Glucose 101 mg/dL (70-99); Osmolality Calculated 282 mOsm/kg (285-295); Potassium 3.8 mmol/L (3.5-5.1); Sodium 137 mmol/L (136-145)
[2021-02-09 08:00] VITALS: BP 114/71; PULSE 58; RESP 16; TEMP 36.8; O2SAT 98
[2021-02-09] MEDS: ENOXAPARIN 40 MG/0.4 ML SYRINGE SUB-Q (08:39)
[2021-02-09] MEDS: FERROUS SULFATE 324 MG TABLET PO (08:41)
[2021-02-09] MEDS: COLLAGENASE OINT 30 GM TUBE 1 APPLIC TOPICAL (10:39)
[2021-02-09 11:52] LABS: Amphetamine Screen Urine Negative (Negative); Barbiturate Screen Urine Negative (Negative); Benzodiazepines Screen Urine Negative (Negative); Cannabinoid Screen Urine Negative (Negative); Cocaine Screen Urine Negative (Negative); Methadone Screen Urine Negative (Negative); Opiate Screen Urine Negative (Negative); Phencyclidine Screen Urine Negative (Negative)
[2021-02-09] MEDS: LORazepam INJ (*CRX) 2 MG/ML VIAL 0.5 MG IV PUSH (12:14)
--- NOTE | 2021-02-09 14:55 | PM.DS ---
DS: Admitting Diagnosis Admitting Diagnosis Admitting Diagnosis: Abscess/Cellulitis DS: Discharge Diagnosis Discharge Diagnosis (1) Abscess of leg, right: Code(s): L02.415 - Cutaneous abscess of right lower limb Status: Acute Assessment and Plan: 02/07/2021 Wound Cx taken at outside wound clinic yesterday, will be looking for results, [facility] phone number [phone] leave message and they will call back within about 30 minutes, Pt was going to be started on Linezolid 600 mg BID, Clindamycin 600 mg TID, and Florastor BID for 30 days but is seems like Pt did not pick this up but came to ER instead, Wound Clinic recommended Santyl with dressing change BID. Blood Cx x 2 pending at this facility 02/08/2021 MRI results: no osteomyelitis, no abscess, continue with Ab at this time 02/09/2021 Obtained Culture and Sensitivity from [facility] for the wound culture of the right lower extremity which shows Staph Aureus (non-beta), Staph Aureus (beta), and Citrobacter braakii and all 3 are susceptible to Levofloxacin, will DC Pt home with this Ab and she is to have close follow up with her PCP and wound clinic on Friday February 12, 2021, Pt states Levaquin caused itching and instructed her to take benadryl with this medication should itching start. (2) Anemia: Qualifiers: Anemia type: unspecified type Qualified Code(s): D64.9 - Anemia, unspecified Code(s): D64.9 - Anemia, unspecified Status: Acute Assessment and Plan: 02/07/2021 current H/H 8.3/28 which may be a little dilutional d/t Pt getting 1 L NS bolus in ER, will monitor H/H, transfuse if Hgb falls below 7, no obvious bleeding, Pt states she has not had any blood work in a long time, will order anemia workup 02/08/2021 Stable H/H 8.4/28.6, will continue to monitor 02/09/2021 Stable H/H 8.3/27.9 (3) HTN (hypertension): Code(s): I10 - Essential (primary) hypertension Status: Acute Assessment and Plan: 02/07/2021 Continue with home medication Clonidine, monitor VS, make adjustments as needed. 02/08/2021 Clonidine was held a couple times yesterday AM. 02/09/2021 No changes to medications at this time, Pt to f/u with PCP in 1 week. (4) IVDU (intravenous drug user): Code(s): F19.90 - Other psychoactive substance use, unspecified, uncomplicated Status: Acute Assessment and Plan: 02/07/2021 Pt states that she is currently using IV drugs and has no interest at this time of rehabilitation, states she has been to rehabilitation in the past a couple times, Ativan 0.5 Q6H PRN for withdrawal 02/08/2021 Markos from a [facility] addiction [facility] saw the Pt yesterday and left some literature for the Pt though she did not seem interest and states she did not want to have rehab at this time and stated she had been to rehab a few times in the past. 02/09/2021 Pt states she will go to rehab when she is ready (5) Heart murmur, systolic: Code(s): R01.1 - Cardiac murmur, unspecified Status: Acute Assessment and Plan: 02/07/2021 Slight systolic murmur, Echo obtained today but not read at this time. 02/08/2021 Echo results: Summary 1. Complete two-dimensional, color flow and Doppler transthoracic echocardiogram is performed. 2. Left ventricular chamber dimension is normal. 3. Left ventricular systolic function is normal, estimated at 60-65%. 4. The left ventricular diastolic function is normal. 5. E/e' 7 is not elevated. 6. Global longitudinal strain is normal at -19.1%. 7. There is trace mitral valve regurgitation. 8. There is trace tricuspid valve regurgitation. 9. Mild pulmonary hypertension, estimated pulmonary arterial systolic pressure is 49 mmHg. 10. There is trace pulmonic regurgitation. 02/09/2021 Pt to follow up with PCP DS: Summary Hospital Course Hospital Course: Some improvement to the right lower extremity after 3 days of IV Ab, will continue with 14 days of PO Ab on DC, no drai
--- NOTE | 2021-02-09 15:20 | PC.NURSE ---
Patient dressed and wanting to leave. Asked to see IV site to document appearance, patient stated other nurse took IV out. Patient then pulled up long sleeve and IV was still present. IV DC'd intact. No redness, edema or drainage at site. Folded 2x2 placed over site and taped in place. Patient advised to watch of signs of infection/infiltration. At time of DC, patient alert/oriented x 3, skin pink,warm dry. Respirations easy, unlabored and regular. Patient assisted to ambulate from facility to parking lot. at side and accompanied patient.
[2021-02-12 19:46] LABS: Transferrin 198 mg/dL (188-341)
--- NOTE | 2021-02-15 13:47 | PC.NURSE ---
Unable to contact for discharge call back.
== END 2021-02-09 15:20 | disposition home or self-care (01) | DRG 383 ==
LOC: CHSED 18:49 → CHS2ND 19:03
PROVIDERS: Nurse Practitioner Family; Admitting Provider Emergency Medicine; Emergency Provider Emergency Medicine; PCP Nurse Practitioner Family; Visit Provider Emergency Medicine
DX: L02.415 Cutaneous abscess of right lower limb (principal); J44.9 Chronic obstructive pulmonary disease, unspecified; Z90.710 Acquired absence of both cervix and uterus; F17.210 Nicotine dependence, cigarettes, uncomplicated; D64.9 Anemia, unspecified; R01.1 Cardiac murmur, unspecified; F19.90 Other psychoactive substance use, unspecified, uncomplicated; I10 Essential (primary) hypertension; Z96.651 Presence of right artificial knee joint
CPT/HCPCS: 36415; 71046; 73718; 80048; 80053; 80307; 81001; 82565; 82607; 82728; 82746; 83540; 83550; 83605; 83615; 84443; 84466; 85025; 85027; 85610; 85730; 86140; 87040; 93306; 96361; 96365; 99285; A9270; J1650; J2060; J2543; J3370; J7030

== ENCOUNTER 2022-04-19 20:53 | Emergency (ER) | payer OTHER, SELFPAY ==
--- NOTE | 2022-04-19 21:31 | PC.NURSE ---
Pt aox3 states this is ridiculous I am going somewhere else . Pt referring to wait times.
== END 2022-04-20 00:46 | disposition left against medical advice (07) ==
PROVIDERS: PCP Nurse Practitioner Family
DX: Z53.21 Procedure and treatment not carried out due to patient leaving prior to being seen by health care provider (principal)
CPT/HCPCS: 99199

== ENCOUNTER 2022-05-27 21:07 | Emergency (ER) | payer OTHER, SELFPAY ==
--- NOTE | ~2022-05-27 | XR_ITS ---
EXAMINATION: XR chest 1V portable DATE: 05/27/2022 22:54 INDICATION: Chest pain TECHNIQUE: frontal view of the chest was obtained. COMPARISON: Chest radiograph dated 02/06/2021 FINDINGS: The lungs remain clear with no focal airspace opacities, pulmonary edema, pleural effusion or pneumot horax. The cardiomediastinal silhouette is normal. Visualized bones and soft tissues are unremarkable . IMPRESSION: 1. No acute cardiopulmonary disease. Reviewed, dictated and finalized at location A.
--- NOTE | ~2022-05-27 | CT_ITS ---
EXAMINATION: CT abdomen pelvis w con DATE: 05/27/2022 23:45 INDICATION: Generalized abdominal pain, nausea and vomiting. TECHNIQUE: Computed tomography (CT) of the abdomen and pelvis was performed with 100 CC Omnipaque 350 intravenous contrast. Automated exposure control and iterative reconstruction technique were employe d. Exam dose: 235.31 mGy-cm total exam DLP. COMPARISON: None. FINDINGS: Normal heart size. No pericardial or pleural effusion. The lung bases are clear of infiltra te or consolidation. The gallbladder is contracted. Normal caliber of the common bile duct. No hepatic, splenic, pancreati c, and adrenal or renal space-occupying mass lesion. No splenomegaly. No urinary tract calculus or hy droureteronephrosis. The urinary bladder is unremarkable. Status post hysterectomy. Normal caliber of the abdominal aorta. No intraperitoneal or retroperitoneal or pelvic mass lesion or adenopathy or ascites. There is a prominent amount of fecal material in the cecum, ascending and transverse colon. No bowel wall thickening, pneumatosis or intraperitoneal free air. No evidence of appendicitis. The appendix a ppears normal. Included skeletal structures are unremarkable. IMPRESSION: Normal appendix Prominent amount fecal material in the right colon; no bowel obstruction or free air Reviewed, dictated and finalized at Location A. Reviewed, dictated and finalized at location B. IMPRESSION: Normal appendix Prominent amount fecal material in the right colon; no bowel obstruction or teja e air
[2022-05-27 21:33] VITALS: BP 153/94; PULSE 93; RESP 20; TEMP 36.8; O2SAT 100
--- NOTE | 2022-05-27 21:51 | ED.GENADULT ---
HPI - General Adult General Chief complaint: Abdominal Pain Stated complaint: abd pain/lightheaded/fatigue History of Present Illness HPI narrative: This is a 47-year-old female with IVDA The ED with a chief complaint of not feeling well x1 month. Patient tested positive for COVID on May 11. Since then she has been feeling fatigue, low energy, low appetite. Starting 4 days ago she started experiencing aching abdominal pain that moves around her stomach. He has 3/10 in intensity and comes and goes. It is worsening right upper quadrant And right flank. She has never experienced pain like this before. There are no exacerbating or alleviating factors. It is associated with multiple episodes of nonbloody nonbilious vomiting per day. Her last bowel movement was just mucus. The patient denies fever chills chest pain or difficulty breathing. She last used fentanyl yesterday. She does not believe that she is going to withdrawal at this time. Patient does not have a history of infective endocarditis. Related Data Home Medications Medication Instructions Recorded Confirmed clonidine HCl 0.3 mg tablet 0.3 mg PO TID 04/01/20 05/27/22 venlafaxine 150 mg 150 mg PO DAILY 04/01/20 05/27/22 capsule,extended release 24 hr (Effexor XR) albuterol sulfate 90 mcg/actuation 2 puff inhalation PRN PRN 05/27/22 05/27/22 aerosol inhaler Shortness Of Breath Or Wheezing budesonide-formoterol HFA 80 2 inh inhalation DAILY 05/27/22 05/27/22 mcg-4.5 mcg/actuation aerosol inhaler (Symbicort) trazodone 50 mg tablet 1 tablet PO HS 05/27/22 05/27/22 Allergies Allergy/AdvReac Type Severity Reaction Status Date / Time ceftriaxone [From Rocephin] Allergy Flushing Verified 04/01/20 23:02 cortisone Allergy Flushing Verified 04/01/20 23:02 levofloxacin [From Levaquin] Allergy Flushing Verified 04/01/20 23:02 Sulfa (Sulfonamide Allergy Swelling Verified 02/06/21 17:29 Antibiotics) of Lip/Tongue/Throat tramadol Allergy Flushing Verified 04/01/20 23:02 Review of Systems Constitutional: Constitutional: Reports fatigue Eyes: Eyes: Reports no additional eye complaints ENT: Denies dysphagia Cardiovascular: Cardiovascular: Denies chest pain Respiratory: Respiratory: Denies chest congestion Gastrointestinal: Gastrointestinal: Reports abdominal pain Genitourinary: Genitourinary: Denies hematuria Musculoskeletal: Musculoskeletal: Reports myalgias Integumentary/Breasts: Skin/Breast: Denies rash Neurologic: Denies confusion Psychiatric: Psychiatric: Denies anxiety Endocrine: Endocrine: Denies excessive sweating Hematologic/Lymphatic: Hematologic/Lymphatic: Denies easy bleeding Allergic/Immunologic: Allergic/Immunologic: Denies lip swelling PMFSH Past Medical History Medical History COPD (chronic obstructive pulmonary disease) IVDU (intravenous drug user) Surgical History Surgical History H/O knee surgery H/O: hysterectomy History of lumpectomy of left breast History of tonsillectomy Social History Social History Smoking packs per day: 1.5 Smoking cigarettes per day: 30.0 Smoking status: Current every day smoker Tobacco type: cigarettes Second hand tobacco smoke exposure: Yes Alcohol intake: unknown Substance use: current Substance use type: opiates, club/wind farm designer drugs, IV drugs and prescription drug Gender identity (if verbalized by the patient): Female Spiritual care concerns: No Exam Narrative: patient is pleasant. She displayed Bernal interviewed. Const: General: no acute distress and alert Nutritional Appearance: well nourished Orientation/consciousness: patient oriented x3 HENMT: Head: normal to inspection Ears: external ears normal General nose exam: Normal external nose present Face and sinus: normal facial exam Eyes: Conjunctivae: conjunctivae norm
--- NOTE | 2022-05-27 22:13 | ECG_ITS ---
Measurements Intervals [place] Rate: 74 P: 69 [place]: 172 QRS: 48 QRSD: 93 T: 7 QT: 382 QTc: 426 Interpretive Statements SINUS RHYTHM NONSPECIFIC T-WAVE ABNORMALITY- ANTERIOR LEADS BORDERLINE ECG Electronically Signed On 05-27-2022 23:31:23 CDT by Francisco Charles D.O.
[2022-05-27] MEDS: SODIUM CHLORIDE 0.9% IV 2,000 ML 999 ML IV CONT (22:42)
[2022-05-27] MEDS: ONDANSETRON INJ 4 MG/2 ML VIAL IV PUSH (22:43)
[2022-05-27 22:48] LABS: Basophils Absolute Auto 0.04 K/mm3 (0.00-0.10); Basophils Percent Auto 0.6 % (0.0-1.0); Eosinophils Absolute Auto 0.36 K/mm3 (0.02-0.50); Hematocrit 35.4 % (35.0-49.0); Hemoglobin 10.5 g/dL (12.0-15.0); Immature Granulocyte Absolute 0.01 K/mm3 (0.00-0.00); Immature Granulocyte Percent A 0.1 % (0.0-0.0); Lymphocytes Absolute Auto 2.68 K/mm3 (1.10-4.50); Lymphocytes Percent Auto 36.9 % (18.0-42.0); Mean Corpuscular HGB Conc 29.7 g/dL (32.0-36.0); Mean Corpuscular Hemoglobin 23.6 pg (27.0-31.0); Mean Corpuscular Volume 79.7 fL (78.0-102.0); Mean Platelet Volume 9.2 fl (9.2-11.8); Monocytes Absolute Auto 0.36 K/mm3 (0.10-0.90); Neutrophils Absolute Auto 3.8 K/mm3 (1.7-7.2); Neutrophils Percent Auto 52.4 % (50.0-70.0); Platelet Count Result 344 K/mm3 (150-420); Red Blood Count 4.44 M/mm3 (4.20-5.40); Red Cell Distribution Width 16.5 % (11.6-14.4); White Blood Count 7.3 K/mm3 (4.8-10.8)
[2022-05-27 22:56] LABS: Add Urine Microscopic? YES; Bilirubin Urine 1+ (Negative); Blood Urine Negative (Negative); Color Urine Dark Yellow (Yellow); Glucose Urine UA Negative (Negative); Ketones Urine Trace (Negative); Leukocyte Esterase Ur Negative LEU/UL (Negative); Nitrate Urine Negative (Negative); Protein Urine Negative (Negative); Specific Grav Ur >= 1.030 (1.010-1.020); Urobilinogen Urine 0.2 mg/dL (0.2-1.0)
[2022-05-27 23:00] VITALS: BP 155/74; PULSE 78; RESP 18; O2SAT 97
[2022-05-27 23:06] LABS: Appearance Urine Slightly Cloudy (Clear); Bacteria Urine Trace /hpf; Calcium Oxalate Crystals Urine Present /hpf; Squamous Epithelial Cell Urine Moderate /hpf (Few)
[2022-05-27 23:07] LABS: Mucus Urine Heavy /lpf
[2022-05-27 23:08] LABS: Alanine Aminotransferase 23 U/L (14-59); Albumin Level 3.5 g/dL (3.4-5.0); Alkaline Phosphatase 154 U/L (46-116); Anion Gap 6 mmol/L (8-16); Aspartate Amino Transferase 20 U/L (15-37); Bilirubin,Total 0.2 mg/dL (0.00-1.00); Blood Urea Nitrogen 8 mg/dL (7-18); Calcium 8.9 mg/dL (8.5-10.1); Carbon Dioxide 30 mmol/L (21-32); Chloride 103 mmol/L (98-108); Estimated CRCL calculation 61 ml/min; Estimated Glomerular Filt Rate > 60; Glucose 85 mg/dL (70-99); Lipase 52 U/L (73-393); Osmolality Calculated 285 mOsm/kg (285-295); Potassium 3.7 mmol/L (3.5-5.1); Sodium 139 mmol/L (136-145); Total Protein 7.9 g/dL (6.4-8.2)
[2022-05-27 23:11] LABS: SARS-CoV-2 Ag Negative (Negative)
[2022-05-27 23:56] LABS: Erythrocyte Sedimentation Rate 28 mm/hr (0-15)
[2022-05-28 00:05] VITALS: BP 140/85; PULSE 88; RESP 18; O2SAT 97
[2022-05-28 00:45] VITALS: BP 139/78; PULSE 85; RESP 18; TEMP 36.8; O2SAT 98
== END 2022-05-28 00:56 | disposition home or self-care (01) ==
PROVIDERS: Emergency Provider Emergency Medicine; PCP Nurse Practitioner Family
DX: K59.03 Drug induced constipation (principal); T40.2X5A Adverse effect of other opioids, initial encounter
CPT/HCPCS: 36415; 71045; 74177; 80053; 81001; 83690; 85025; 85652; 87040; 87426; 93005; 96361; 96374; 99284; C9803; J2405; J7030; Q9967

== ENCOUNTER 2022-07-05 19:55 | Emergency (ER) | payer OTHER, SELFPAY ==
--- NOTE | ~2022-07-05 | XR_ITS ---
EXAMINATION: XR knee RT 2V DATE: 07/05/2022 20:19 INDICATION: Right knee injury presenting with pain TECHNIQUE: AP and crosstable lateral views of the right knee were obtained. COMPARISON: 04/22/2012 FINDINGS: Interval revision of the prior right total knee arthroplasty with placement of a new semiconstrained arthroplasty with longstem femoral and tibial components. There has also been associated patellar res urfacing. Alignment remains near-anatomic. Mild increased asymmetric lucency measuring approximately 2 mm in thickness along the lateral side of the tip of the stem of the femoral component suggestive o f loosening. No fracture identified. Moderate-sized right knee joint effusion. IMPRESSION: 1. Moderate-sized right knee joint effusion. 2. Asymmetric lucency along the lateral margin of the tip of the long stem of the femoral component s uggestive of loosening which is likely chronic given the remodeling along the inner margin of the med ial sided diaphyseal cortex. Correlation with any intervening outside imaging obtained following the revision would be useful for comparison. Reviewed, dictated and finalized at location A. IMPRESSION: 1. Moderate-sized right knee joint effusion. 2. Asymmetric lucency along the lateral margin of the tip of the long stem of t he femoral component suggestive of loosening which is likely chronic given the remodeling along the inner margin of the medial sided diaphyseal cortex. Correl ation with any intervening outside imaging obtained following the revision woul d be useful for comparison.
[2022-07-05 20:00] VITALS: BP 123/76; PULSE 98; RESP 20; TEMP 36.4; O2SAT 97
[2022-07-05] MEDS: MORPHINE SULFATE (*CRX) 4 MG/ML INJ IM (20:18)
--- NOTE | 2022-07-05 20:18 | ED.LOWEXIN ---
HPI - Extremity Injury (Lower) General Chief Complaint: Extremity Injury, Lower Stated Complaint: fell earlier; R knee/leg injury Time Seen by Provider: 07/05/22 19:58 Source: patient and family Mode of arrival: wheelchair History of Present Illness complaint: knee injury Onset (ago): hour(s) Injury: Right: knee ( Tender with decreased range of motion) Type of Injury: blunt Place: home Severity: moderate Severity scale (1-10): 8 Relieving factors: immobilization Exacerbating factors: weight bearing, movement and palpation Context: fall and direct blow Related Data Home Medications Medication Instructions Recorded Confirmed clonidine HCl 0.3 mg tablet 0.3 mg PO TID 04/01/20 05/27/22 venlafaxine 150 mg 150 mg PO DAILY 04/01/20 05/27/22 capsule,extended release 24 hr (Effexor XR) trazodone 50 mg tablet 1 tablet PO HS 05/27/22 05/27/22 Allergies Allergy/AdvReac Type Severity Reaction Status Date / Time ceftriaxone [From Rocephin] Allergy Flushing Verified 04/01/20 23:02 cortisone Allergy Flushing Verified 04/01/20 23:02 levofloxacin [From Levaquin] Allergy Flushing Verified 04/01/20 23:02 Sulfa (Sulfonamide Allergy Swelling Verified 02/06/21 17:29 Antibiotics) of Lip/Tongue/Throat tramadol Allergy Flushing Verified 04/01/20 23:02 Review of Systems Review of Systems: All systems reviewed & are unremarkable except as noted in HPI and below PMFSH Past Medical History Medical History COPD (chronic obstructive pulmonary disease) IVDU (intravenous drug user) Surgical History Surgical History H/O knee surgery H/O: hysterectomy History of lumpectomy of left breast History of tonsillectomy Social History Social History Smoking packs per day: 1.5 Smoking cigarettes per day: 30.0 Smoking status: Current every day smoker Tobacco type: cigarettes Second hand tobacco smoke exposure: Yes Alcohol intake: unknown Substance use: current Substance use type: opiates, club/commercial designer drugs, IV drugs and prescription drug Gender identity (if verbalized by the patient): Female Spiritual care concerns: No Exam Const: General: healthy appearing, no acute distress and alert Limitations: no limitations HENMT: Head: normal to inspection Ears: external ears normal General nose exam: Normal external nose present Face and sinus: normal facial exam Mouth: Yes Normal oral and palatal mucosa present Eyes: Conjunctivae: conjunctivae normal Pupils: Equal, round and reactive pupils present Neck: Neck: normal visual inspection, no lymphadenopathy and no meningeal signs Chest: Chest palpation & inspection: normal inspection of the chest Resp: Effort & Inspection: normal respiratory effort Auscultation: clear to auscultation bilaterally Cardio: Rate: regular rate and bradycardic GI: GI Palp: Yes Soft to palpation Auscultation: normal bowel sounds Back/Spine/Pelvis: Back: no CVA tenderness Skin: General skin exam: normal color Rashes: no rashes Wounds: no wounds Neuro: General: patient oriented x3 and moves all extremities Speech: normal speech Extrem: Other: tender right knee with palpation and movement and weight-bearing Psych: Mental Status: mental status grossly normal Affect: normal affect Course Course Emergency Course: patient received IM morphine and x-ray reviewed reviewed with patient and family. Critical Care Time Critical Care Time Critical Care Time: No Discharge Plan Discharge Clinical Impression: Joint effusion of knee Qualifiers: Laterality: right Qualified Code(s): M25.461 - Effusion, right knee Patient Disposition: Home, Self-Care Condition: Stable Instructions: Antibiotic Form, Knee Sprain (ED) Additional Instructions: advised to take Tylenol or Motrin for pain and inflammation and follow up with primary within 1 wee
[2022-07-05 21:02] VITALS: BP 125/78; PULSE 91; RESP 20; TEMP 36.6; O2SAT 97
--- NOTE | 2022-07-05 21:13 | PC.NURSE ---
pt assisted per w/c to personal vehicle via wheelchair.
== END 2022-07-05 21:10 | disposition home or self-care (01) ==
PROVIDERS: Emergency Provider Emergency Medicine; PCP Nurse Practitioner Family
DX: M25.461 Effusion, right knee (principal); F17.200 Nicotine dependence, unspecified, uncomplicated
CPT/HCPCS: 73560; 96372; 99283; J2270

== ENCOUNTER 2022-08-28 13:32 | Outpatient (CLI) | payer OTHER, SELFPAY ==
[2022-08-28 14:00] LABS: Basophils Absolute Auto 0.04 K/mm3 (0.00-0.10); Basophils Percent Auto 0.7 % (0.0-1.0); Eosinophils Absolute Auto 0.26 K/mm3 (0.02-0.50); Eosinophils Percent Auto 4.4 % (1.0-6.0); Hematocrit 31.2 % (35.0-49.0); Hemoglobin 9.5 g/dL (12.0-15.0); Immature Granulocyte Absolute 0.02 K/mm3 (0.00-0.00); Immature Granulocyte Percent A 0.3 % (0.0-0.0); Lymphocytes Absolute Auto 2.81 K/mm3 (1.10-4.50); Lymphocytes Percent Auto 47.4 % (18.0-42.0); Mean Corpuscular HGB Conc 30.4 g/dL (32.0-36.0); Mean Corpuscular Hemoglobin 25.9 pg (27.0-31.0); Mean Platelet Volume 8.3 fl (9.2-11.8); Monocytes Absolute Auto 0.28 K/mm3 (0.10-0.90); Monocytes Percent Auto 4.7 % (2.0-11.0); Neutrophils Absolute Auto 2.5 K/mm3 (1.7-7.2); Neutrophils Percent Auto 42.5 % (50.0-70.0); Platelet Count Result 305 K/mm3 (150-420); Red Blood Count 3.67 M/mm3 (4.20-5.40); Red Cell Distribution Width 17.2 % (11.6-14.4); White Blood Count 5.9 K/mm3 (4.8-10.8)
[2022-08-28 15:06] LABS: Alanine Aminotransferase 17 U/L (14-59); Albumin Level 3.6 g/dL (3.4-5.0); Alkaline Phosphatase 189 U/L (46-116); Anion Gap 9 mmol/L (8-16); Aspartate Amino Transferase 16 U/L (15-37); Bilirubin,Total 0.2 mg/dL (0.00-1.00); Blood Urea Nitrogen 7 mg/dL (7-18); CRP 2.4 mg/dL (0.0-0.9); Calcium 9.2 mg/dL (8.5-10.1); Carbon Dioxide 30 mmol/L (21-32); Chloride 98 mmol/L (98-108); Estimated Glomerular Filt Rate > 60; Glucose 87 mg/dL (70-99); Osmolality Calculated 281 mOsm/kg (285-295); Potassium 4.2 mmol/L (3.5-5.1); Sodium 137 mmol/L (136-145); Total Protein 8.4 g/dL (6.4-8.2)
[2022-08-28 15:07] LABS: Erythrocyte Sedimentation Rate 54 mm/hr (0-15)
== END 2022-08-28 13:33 | disposition home or self-care (01) ==
LOC: CHSLAB 13:37
PROVIDERS: PCP Family Medicine
DX: M00.9 Pyogenic arthritis, unspecified (principal); I10 Essential (primary) hypertension; T84.50XA Infection and inflammatory reaction due to unspecified internal joint prosthesis, initial encounter; F41.0 Panic disorder [episodic paroxysmal anxiety]; Z72.0 Tobacco use
CPT/HCPCS: 36415; 80053; 85025; 85652; 86140

== ENCOUNTER 2022-10-16 14:46 | Outpatient (CLI) | payer OTHER, SELFPAY ==
--- NOTE | ~2022-10-16 | XR_ITS ---
EXAMINATION: XR chest 2V 10/16/2022 15:25 INDICATION: Preop. PROCEDURE: 2 view chest COMPARISON: 05/27/2022 FINDINGS: The lungs are clear. The cardiomediastinal silhouette is within normal limits. There are no pleural effusions. There is no pneumothorax suspected. IMPRESSION: 1: NO ACUTE CARDIOPULMONARY DISEASE. Reviewed, dictated and finalized at location A. SCOPE REPAIRER
[2022-10-16 15:09] LABS: Basophils Absolute Auto 0.04 K/mm3 (0.00-0.10); Basophils Percent Auto 0.6 % (0.0-1.0); Eosinophils Absolute Auto 0.29 K/mm3 (0.02-0.50); Eosinophils Percent Auto 4.5 % (1.0-6.0); Hematocrit 38.8 % (35.0-49.0); Hemoglobin 10.8 g/dL (12.0-15.0); Immature Granulocyte Absolute 0.02 K/mm3 (0.00-0.00); Immature Granulocyte Percent A 0.3 % (0.0-0.0); Mean Corpuscular HGB Conc 27.8 g/dL (32.0-36.0); Mean Corpuscular Volume 89.8 fL (78.0-102.0); Mean Platelet Volume 9.7 fl (9.2-11.8); Monocytes Absolute Auto 0.31 K/mm3 (0.10-0.90); Monocytes Percent Auto 4.8 % (2.0-11.0); Neutrophils Absolute Auto 3.4 K/mm3 (1.7-7.2); Neutrophils Percent Auto 52.8 % (50.0-70.0); Platelet Count Result 317 K/mm3 (150-420); Red Blood Count 4.32 M/mm3 (4.20-5.40); Red Cell Distribution Width 14.6 % (11.6-14.4); White Blood Count 6.5 K/mm3 (4.8-10.8)
--- NOTE | 2022-10-16 15:15 | ECG_ITS ---
Measurements Intervals [place] Rate: 68 P: 75 [place]: 171 QRS: 89 QRSD: 93 T: 59 QT: 373 QTc: 398 Interpretive Statements SINUS RHYTHM NONSPECIFIC ST ABNORMALITY BORDERLINE ECG COMPARED TO ECG 05/27/2022 22:46:59 NO SIGNIFICANT CHANGES Electronically Signed On 10-17-2022 15:29:47 ESL TEACHER by Rich Roberto M.D.
[2022-10-16 15:31] LABS: Alanine Aminotransferase 19 U/L (14-59); Albumin Level 3.7 g/dL (3.4-5.0); Alkaline Phosphatase 167 U/L (46-116); Anion Gap 13 mmol/L (8-16); Aspartate Amino Transferase 21 U/L (15-37); Bilirubin,Total 0.1 mg/dL (0.00-1.00); Blood Urea Nitrogen 11 mg/dL (7-18); Calcium 9.4 mg/dL (8.5-10.1); Carbon Dioxide 24 mmol/L (21-32); Chloride 101 mmol/L (98-108); Estimated Glomerular Filt Rate > 60; Glucose 86 mg/dL (70-99); Osmolality Calculated 284 mOsm/kg (285-295); Potassium 4.5 mmol/L (3.5-5.1); Sodium 138 mmol/L (136-145); Total Protein 8.6 g/dL (6.4-8.2)
[2022-10-16 16:18] LABS: Add Urine Microscopic? NO; Appearance Urine Clear (Clear); Bilirubin Urine Negative (Negative); Blood Urine Negative (Negative); Color Urine Yellow (Yellow); Glucose Urine UA Negative (Negative); Ketones Urine Negative (Negative); Leukocyte Esterase Ur Negative LEU/UL (Negative); Nitrate Urine Negative (Negative); Protein Urine Negative (Negative); Specific Grav Ur 1.015 (1.010-1.020); Urobilinogen Urine 0.2 mg/dL (0.2-1.0)
== END 2022-10-16 14:47 | disposition home or self-care (01) ==
PROVIDERS: PCP Nurse Practitioner Family; Visit Provider Nurse Practitioner Family
DX: Z01.818 Encounter for other preprocedural examination (principal)
CPT/HCPCS: 36415; 71046; 80053; 81003; 85025; 87081; 93005

== ENCOUNTER 2022-12-13 14:48 | Outpatient (CLI) | payer OTHER, SELFPAY ==
--- NOTE | ~2022-12-13 | XR_ITS ---
EXAMINATION: XR ankle RT min 3V DATE: 12/13/2022 15:19 INDICATION: Medial right ankle pain and swelling. TECHNIQUE: 4 views of right ankle were obtained. COMPARISON: None. FINDINGS: Bone alignment is normal. No fracture. Partially visualized is instrumentation in tibial di aphysis. Joint spaces are normal. There is an enthesophyte at posterior aspect of calcaneal tuberosit y. IMPRESSION: 1. No fracture. Reviewed, dictated and finalized at location A. ESS MAINTENANCE TECHNICIAN IMPRESSION: 1. No fracture.
[2022-12-13 15:12] LABS: Add Urine Microscopic? YES; Appearance Urine Clear (Clear); Bilirubin Urine Negative (Negative); Blood Urine Trace-Intact (Negative); Color Urine Yellow (Yellow); Glucose Urine UA Negative (Negative); Ketones Urine Negative (Negative); Leukocyte Esterase Ur Negative LEU/UL (Negative); Nitrate Urine Negative (Negative); Protein Urine Negative (Negative); Specific Grav Ur 1.025 (1.010-1.020); pH Urine 6.5 (5.0-8.0)
[2022-12-13 15:19] LABS: Bacteria Urine 1+ /hpf; RBC Urine 0-2 /hpf (0-2); Squamous Epithelial Cell Urine Few /hpf (Few); WBC Urine None seen /hpf (0-3)
== END 2022-12-13 14:49 | disposition home or self-care (01) ==
LOC: CHSLAB 14:50
PROVIDERS: PCP Family Medicine; Visit Provider Family Medicine
DX: R30.0 Dysuria (principal); M25.571 Pain in right ankle and joints of right foot
CPT/HCPCS: 73610; 81001

== ENCOUNTER 2023-02-13 13:07 | Emergency (ER) | payer OTHER, SELFPAY ==
[2023-02-13 13:27] VITALS: BP 186/93; PULSE 99; RESP 20; TEMP 36.9; O2SAT 100
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
[2023-02-13] MEDS: HALOPERIDOL LACTATE 5 MG/ML VIAL IM (13:49)
[2023-02-13 14:28] LABS: Basophils Absolute Auto 0.07 K/mm3 (0.00-0.10); Basophils Percent Auto 0.8 % (0.0-1.0); Eosinophils Absolute Auto 0.24 K/mm3 (0.02-0.50); Eosinophils Percent Auto 2.7 % (1.0-6.0); Hematocrit 32.3 % (35.0-49.0); Hemoglobin 10.2 g/dL (12.0-15.0); Immature Granulocyte Absolute 0.02 K/mm3 (0.00-0.00); Immature Granulocyte Percent A 0.2 % (0.0-0.0); Lymphocytes Absolute Auto 1.98 K/mm3 (1.10-4.50); Lymphocytes Percent Auto 22.2 % (18.0-42.0); Mean Corpuscular HGB Conc 31.6 g/dL (32.0-36.0); Mean Platelet Volume 9.3 fl (9.2-11.8); Monocytes Absolute Auto 0.52 K/mm3 (0.10-0.90); Monocytes Percent Auto 5.8 % (2.0-11.0); Neutrophils Absolute Auto 6.1 K/mm3 (1.7-7.2); Neutrophils Percent Auto 68.3 % (50.0-70.0); Platelet Count Result 451 K/mm3 (150-420); Red Blood Count 4.25 M/mm3 (4.20-5.40); Red Cell Distribution Width 14.9 % (11.6-14.4); White Blood Count 8.9 K/mm3 (4.8-10.8)
[2023-02-13 14:30] LABS: Appearance Urine Clear (Clear); Bilirubin Urine Negative (Negative); Blood Urine Negative (Negative); Color Urine Yellow (Yellow); Glucose Urine UA Negative (Negative); Ketones Urine Negative (Negative); Leukocyte Esterase Ur Negative LEU/UL (Negative); Nitrate Urine Negative (Negative); Protein Urine Negative (Negative); Specific Grav Ur >= 1.030 (1.010-1.020); Urobilinogen Urine 0.2 mg/dL (0.2-1.0); pH Urine 5.5 (5.0-8.0)
[2023-02-13 14:32] LABS: Add Urine Microscopic? NO
[2023-02-13 14:37] LABS: Amphetamine Screen Urine Positive (Negative); Barbiturate Screen Urine Negative (Negative); Benzodiazepines Screen Urine Negative (Negative); Cannabinoid Screen Urine Negative (Negative); Cocaine Screen Urine Negative (Negative); Methadone Screen Urine Negative (Negative); Opiate Screen Urine Negative (Negative); Phencyclidine Screen Urine Negative (Negative)
[2023-02-13 14:42] LABS: Partial Thromboplastin Time 31.4 SEC (23.90-30.70); Prothrombin Time 11.2 Seconds (9.50-12.10)
[2023-02-13 14:47] LABS: Lactic Acid Reflex 1.3 mmol/L (0.4-2.0)
[2023-02-13 14:55] LABS: Alanine Aminotransferase 7 U/L (14-59); Albumin Level 4.1 g/dL (3.4-5.0); Alkaline Phosphatase 187 U/L (46-116); Anion Gap 11 mmol/L (8-16); Aspartate Amino Transferase 24 U/L (15-37); Bilirubin,Total 0.4 mg/dL (0.00-1.00); Blood Urea Nitrogen 14 mg/dL (7-18); Calcium 9.7 mg/dL (8.5-10.1); Carbon Dioxide 27 mmol/L (21-32); Chloride 98 mmol/L (98-108); Estimated CRCL calculation 56 ml/min; Estimated Glomerular Filt Rate 57; Glucose 119 mg/dL (70-99); Lipase 16 U/L (16-77); Osmolality Calculated 283 mOsm/kg (285-295); Potassium 3.4 mmol/L (3.5-5.1); Sodium 136 mmol/L (136-145); Thyroid Stimulating Hormone 2.26 uIU/mL (0.36-3.74); Total Protein 8.9 g/dL (6.4-8.2); Troponin I 5.4 ng/L (0.00-60.4)
[2023-02-13 15:13] LABS: Pregnancy On Board Control Positive; Urine Pregnancy Test Negative
[2023-02-13 16:06] VITALS: BP 120/78; PULSE 78; RESP 18; TEMP 36.3; O2SAT 100
--- NOTE | 2023-02-13 16:18 | PC.NURSE ---
On 02/13/23, the student, [BAM SINGLETON ], provided care and completed [facility] documentation on this patient. I have reviewed the student's documentation and agree with the findings.
== END 2023-02-13 16:10 | disposition home or self-care (01) ==
PROVIDERS: Emergency Provider Internal Medicine Critical Care Medicine; PCP Family Medicine
DX: F29 Unspecified psychosis not due to a substance or known physiological condition (principal); D50.8 Other iron deficiency anemias; N28.9 Disorder of kidney and ureter, unspecified; I10 Essential (primary) hypertension
CPT/HCPCS: 36415; 80053; 80307; 81003; 81025; 83605; 83690; 84443; 84484; 85025; 85610; 85730; 87177; 87209; 96372; 99283; J1630

== ENCOUNTER 2023-05-01 14:20 | Outpatient (CLI) | payer OTHER, SELFPAY ==
[2023-05-01 14:42] LABS: Hematocrit 35.1 % (35.0-49.0); Hemoglobin 9.6 g/dL (12.0-15.0); Mean Corpuscular HGB Conc 27.4 g/dL (32.0-36.0); Mean Corpuscular Hemoglobin 23.9 pg (27.0-31.0); Mean Corpuscular Volume 87.5 fL (78.0-102.0); Mean Platelet Volume 10.3 fl (9.2-11.8); Platelet Count Result 274 K/mm3 (150-420); Red Blood Count 4.01 M/mm3 (4.20-5.40); Red Cell Distribution Width 15.9 % (11.6-14.4); White Blood Count 5.9 K/mm3 (4.8-10.8)
[2023-05-01 15:21] LABS: Alanine Aminotransferase 17 U/L (14-59); Albumin Level 3.7 g/dL (3.4-5.0); Alkaline Phosphatase 160 U/L (46-116); Anion Gap 14 mmol/L (8-16); Aspartate Amino Transferase 22 U/L (15-37); Bilirubin,Total 0.2 mg/dL (0.00-1.00); Blood Urea Nitrogen 27 mg/dL (7-18); Calcium 9.2 mg/dL (8.5-10.1); Carbon Dioxide 21 mmol/L (21-32); Chloride 99 mmol/L (98-108); Estimated Glomerular Filt Rate 46; Glucose 125 mg/dL (70-99); Osmolality Calculated 284 mOsm/kg (285-295); Potassium 4.3 mmol/L (3.5-5.1); Sodium 134 mmol/L (136-145)
== END 2023-05-01 14:21 | disposition home or self-care (01) ==
LOC: CHSLAB 14:22
PROVIDERS: PCP Family Medicine; Visit Provider Family Medicine
DX: Z01.818 Encounter for other preprocedural examination (principal)
CPT/HCPCS: 36415; 80053; 85027; 87081

== ENCOUNTER 2023-05-02 08:50 | Outpatient (CLI) | payer OTHER, SELFPAY ==
--- NOTE | 2023-05-02 08:53 | ECG_ITS ---
Measurements Intervals [place] Rate: 84 P: 64 [place]: 156 QRS: 48 QRSD: 101 T: 12 QT: 369 QTc: 438 Interpretive Statements SINUS RHYTHM NONSPECIFIC T-WAVE ABNORMALITY COMPARED TO ECG 10/16/2022 15:31:44 T-WAVE ABNORMALITY NOW PRESENT Electronically Signed On 05-02-2023 13:44:11 CDT by Radha Kyle M.D.
== END 2023-05-02 08:51 | disposition home or self-care (01) ==
LOC: CHSCARD 08:52
PROVIDERS: PCP Family Medicine; Visit Provider Family Medicine
DX: Z01.818 Encounter for other preprocedural examination (principal); R94.31 Abnormal electrocardiogram [ECG] [EKG]
CPT/HCPCS: 93005

== ENCOUNTER 2025-01-07 18:33 | Emergency (ER) | payer MEDICARE, MEDICAID, SELFPAY ==
--- NOTE | ~2025-01-07 | CT_ITS ---
CT facial bones wo con Ordering provider: Randy Farrell MD History: . facial bone injurie . Comparison: None. Technique: Thin slice axial CT of the facial bones was performed without contrast. Coronal and sagit reynaldo reformatted images were also obtained. . Automated exposure control and iterative reconstruction technique were employed. The dose-length product was 605.33 mGy-cm. FINDINGS: PARANASAL SINUSES: Bilateral frontal, maxillary, ethmoid and sphenoid sinus disease. BONES: No facial fracture including no nasal bone fracture. ORBITS AND SUPERFICIAL SOFT TISSUES: The optic globes and orbits are normal. The superficial soft tis sues are normal. VISUALIZED MASTOIDS: Well aerated. LIMITED VISUALIZED BRAIN PARENCHYMA: Normal. IMPRESSION: No facial fracture. Pansinusitis. CT facial bones wo con Ordering provider: Randy Farrell MD History: . facial bone injurie . Comparison: None. Technique: CT of the cervical spine was performed without contrast. Sagittal and coronal reformatted images were also obtained and reviewed. Automated exposure control and iterative reconstruction cookie hnique were employed. The dose-length product was 605.33 mGy-cm. FINDINGS: VERTEBRAE: No subluxation or acute fracture. The occipital condyles are intact. DISC SPACES: Narrowing of the disc C5-C6. Multilevel facet joint disease. PARASPINOUS SOFT TISSUES: Normal. Left thyroid nodule. Ultrasound evaluation advised. IMPRESSION: No acute osseous abnormality cervical spine. Reviewed, dictated and finalized at location A. NTOLOGICAL NURSE PRACTITIONER IMPRESSION: No facial fracture. Pansinusitis. -- CT facial bones wo con Ordering provider: Randy Farrell MD History: . facial bone injurie . Comparison: None. Technique: CT of the cervical spine was performed without contrast. Sagittal a nd coronal reformatted images were also obtained and reviewed. Automated expos ure control and iterative reconstruction technique were employed. The dose-cheryl th product was 605.33 mGy-cm. FINDINGS: VERTEBRAE: No subluxation or acute fracture. The occipital condyles are intact. DISC SPACES: Narrowing of the disc C5-C6. Multilevel facet joint disease. PARASPINOUS SOFT TISSUES: Normal. Left thyroid nodule. Ultrasound evaluation ad vised.
--- NOTE | ~2025-01-07 | XR_ITS ---
XR knee RT 3V Ordering provider: Randy Farrell MD History: . knee injury . Comparison: July 05, 2022 FINDINGS: BONES: No acute fracture or dislocation. Arthrodesis of the right knee joint is noted. SOFT TISSUES: Normal. IMPRESSION: No acute osseous abnormality right knee. Arthrodesis of the right knee joint. Reviewed, dictated and finalized at location A. OCOPIER TECHNICIAN
--- NOTE | ~2025-01-07 | XR_ITS ---
XR ribs LT 2V Ordering provider: Randy Farrell MD History: . rib pain . Comparison: None. FINDINGS: BONES: No acute left rib fracture or fracture of the visualized osseous structures. LEFT LUNG: No effusions or infiltrates. No pneumothorax. SOFT TISSUES: Normal. IMPRESSION: No left rib fracture. (Note: subtle/nondisplaced rib fractures can be occult on plain films and if t here is continued clinical suspicion for rib fracture, recommend follow up CT chest.) Reviewed, dictated and finalized at location A. LE BOTTOM FILLER IMPRESSION: No left rib fracture. (Note: subtle/nondisplaced rib fractures can be occult o n plain films and if there is continued clinical suspicion for rib fracture, re commend follow up CT chest.)
--- NOTE | ~2025-01-07 | CT_ITS ---
CT brain wo con Ordering provider: Randy Farrell MD History: 49 years Female with . head injury . Comparison: August 27, 2011 Technique: CT of the head without contrast. Radiation reduction technique utilized. The dose-length product was 605.33 mGy-cm. FINDINGS: BRAIN PARENCHYMA AND CSF SPACES: No midline shift, mass effect or hemorrhage. The brain parenchyma a nd CSF spaces are otherwise normal. VISUALIZED PARANASAL SINUSES: Bilateral maxillary, ethmoid and sphenoid sinus disease. MASTOIDS: Well aerated. BONES: The bones appear intact. SOFT TISSUES: A right parietal scalp hematoma. Visualized nasopharynx is normal. Superficial soft tis sues are otherwise normal. IMPRESSION: No acute intracranial findings. Reviewed, dictated and finalized at location A. MIX OPERATOR
[2025-01-07 18:33] VITALS: BP 137/85; PULSE 68; RESP 20; TEMP 36.6; O2SAT 100
--- OUTSIDE RECORDS SUMMARY | 2025-01-07 18:40 | XMS_ITS | Encounter Summary ---
Author Organization [facility] Address [address] [place] [address] Care Team Providers Care Lead Machinist Name Role Phone Jason Manriquez MD Primary Care Provider [phone] Tamar Aguilar CORNER BEAD OPERATOR Primary Care Provider [phone] Encounter Details Date Type Department Care Team (Late st Contact Info) Description 04/18/2019 Abstract [facility] CONVERSION [address] [place] [address] , Generic Conversion, Social History Tobacco Use Types Packs/Day Years Used Date Smoking Tobacco: Never Assessed Comments Unknown Sex and Gender Information Value Date Recorded Sex Assigned at Not on file Legal Sex Female 9:58 PM ELECTRICAL ENGINEERING DESIGNER Gender Identity Not on file Sexual Orientation Not on file documented as of this encounter Plan of Treatment Not on file documented as of this encounter Visit Diagnoses Not on filedocumented in this encounter Additional Health Concerns Infection Onset Date Last Indicated Resolved Time COVID-19 Rule Out 12/18/2020 12/18/2020 12/19/2020 11:06 AM ELECTRICAL ENGINEERING DESIGNER COVID-19 Rule Out 07/06/2022 07/06/2022 07/06/2022 9:40 PM CDT documented as of this encounter Care Teams Lead Machinist Relationship Specialty Start Date End Date Jason Manriquez MD [address] [place] [address] PCP - General INTERNAL MEDICINE 04/01/20 12/17/20 Tamar Aguilar NP [address] [id number] PCP - General Nurse Practitioner Family 12/18/20 documented as of this encounter
--- OUTSIDE RECORDS SUMMARY | 2025-01-07 18:40 | XMS_ITS | Clinical Summary ---
Author Organization [facility] Address [facility] [place] [address] Care Team Providers Care Chief Commercial Officer Name Role Phone Tamar Aguilar NP Primary Care Provider [phone] Allergies Active Allergy Reactions Criticality Noted Date Comments Cortisone Other (see comment) 04/12/2020 bradycardia Levofloxacin Nausea and Vomiting 05/25/2011 Tape Rash Low 04/12/2020 Tramadol Nausea and Vomiting 05/25/2011 Medications * This document contains information received from the source organization and may not represent a complete record from that organization. oyster shell calcium-vitamin D 500-200 MG-UNIT tablet Take 1 tablet by mouth. Active fluticasone propionate 50 MCG/ACT nasal spray 2 sprays by Transmucosal route. 1 Active Spacer/Aero-Hol ding Chambers (MICROCHAMBER) Device Inhale 1 each into the lungs. 1 Active venlafaxine 25 MG tablet Take 150 mg by mouth nightly at bedtime. Active cloNIDine (CATAPRES) 0.3 MG tablet Take 0.3 mg by mouth 4 (four) times daily as needed (anxiety). Active traZODone (DESYREL) 50 MG tablet Take 50 mg by mouth nightly at bedtime. Active Active Problems Problem Noted Date Diagnosed Date Septic arthritis ([facility]) 07/13/2022 Immunizations Name Administration Dates Next Due Tdap (Boostrix) 04/12/2020(Deferred: Patient/family declined - Pt states she just had it 1 year go.) Social History Tobacco Use Types Packs/Day Years Used Date Smoking Tobacco: Every Day Cigarettes Comments No Sex and Gender Information Value Date Recorded Sex Assigned at Not on file Legal Sex Female 9:58 PM OPERATIONS MANAGER Gender Identity Not on file Sexual Orientation Not on file Last Filed Vital Signs Vital Sign Reading Time Taken Comments Blood Pressure 103/61 07/30/2022 8:08 AM CDT Pulse 85 07/30/2022 8:08 AM CDT Temperature 36.5 C (97.7 F) 07/30/2022 8:08 AM CDT Respiratory Rate 18 07/29/2022 7:55 PM CDT Oxygen Saturation 99% 07/30/2022 8:08 AM CDT Inhaled Oxygen Concentration - - Weight 57.6 kg (127 lb) 07/13/2022 6:26 PM CDT Height 165.1 cm (5' 5 ) 07/13/2022 6:26 PM CDT Body Mass Index 21.13 07/13/2022 6:26 PM CDT Plan of Treatment Health Maintenance Due Date Last Done Comments Colorectal Cancer Screening Colonoscopy (10 Years) 1975 Annual Physical 1978 Pneumococcal Vaccine: Pediat rics (0 to 5 Years) and At-Risk Patients (6 to 64 Years) (1 of 2 - PCV) 1981 Hepatitis C 1993 DTaP, Tdap and Td Vaccines ( 1 - Tdap) 1994 Hepatitis B Vaccines (1 of 3 - 19+ 3-dose series) 1994 Mammogram Screening 2015 COVID-19 Vaccine (2023-2 5 season) 2024 Influenza Adult (#1) 2024 Meningococcal B Vaccine Aged Out No l onger eligible based on patient's age to complete this topic Meningococcal Vaccine Aged Out No curtis nick eligible based on patient's age to complete this topic RSV Immunizations Under 20 Months Aged Out No longer eligible based on patient's age to complete this topic Goals Goal Patient Goal Type Associated Problems Recent Progress Patient-Stated? Author Safety Patient/family will have appropriate support at home upon discharge Lifestyle No Radha Andres RN Medical Devices Implanted Type Area Automatic Dispenser Mechanic Device Identifier Shelf Expiration Date Model / Serial / Lot Cement Bone Refobacin Sterile Latex Free Disposable - [id number] Implanted:Qty: 1 on 07/15/2022 by Jorden Reid MD at [facility] Cement Implant Right: Knee [employer] [id number] 04/10/2024 [id number] / / [id number] Cement Bone Refobacin Sterile Latex Free Disposable - [id number] Implanted:Qty: 1 on 07/15/2022 by Jorden Reid MD at [facility] Cement Implant Right: Knee [employer] [id number] 04/10/2024 [id number] / / [id number] Cement Bone Refobacin Sterile Latex Free Disposable - [id number] Implanted:Qty: 1 on 07/15/2022 by Jorden Reid MD at [facility] Cement Implant Right: Knee [employer] [id number] 04/10/2024 [id number] / / [id number] Cement Bone Refobacin Sterile Latex Free Disposable - [id number] Implanted:Qty: 1 on 07/15/2022 by Jorden Reid MD at [facility] Cement Implant Right: Knee [employer] [id number] 01/09/2024 [id number] / / [id number] Explanted Type Area Automatic Dispenser Mechanic Device Identifier Shelf Expiration Date Model / Serial / Lot Drill Surgical Antirotational Screw Disposable Affixus - [id number] Explanted:Qty: 1 on 07/15/2022 by Jorden Reid MD at [facility] Drill Right: Knee [employer] [id number] 04/21/2032 [id number] / / [id number] Insurance [facility] Advance Directives * Full Code (Latest Code Status on File) Date Activated Date Inactivated Comments 07/13/2022 8:52 PM 07/30/2022 6:36 PM Care Teams Chief Commercial Officer Relationship Specialty Start Date End Date Tamar Aguilar NP [address] [phone] PCP - General Nurse Practitioner Family 12/18/20
--- OUTSIDE RECORDS SUMMARY | 2025-01-07 18:40 | XMS_ITS | Encounter Summary ---
Author Organization [facility] Address [address] [place] [address] Care Team Providers Care Black Jack Dealer Name Role Phone Jason Manriquez MD Primary Care Provider [phone] Tamar Aguilar NP Primary Care Provider [phone]- [phone] Encounter Details Date Type Department Care Team (Late st Contact Info) Description 06/11/[address] [facility] [address] [facility] [place] [address] , Generic Conversion, Social History Tobacco Use Types Packs/Day Years Used Date Smoking Tobacco: Never Assessed Comments Unknown Sex and Gender Information Value Date Recorded Sex Assigned at Not on file Legal Sex Female 9:58 PM LEARNING SUPPORT ASSISTANT Gender Identity Not on file Sexual Orientation Not on file documented as of this encounter Plan of Treatment Not on file documented as of this encounter Visit Diagnoses Not on filedocumented in this encounter Additional Health Concerns Infection Onset Date Last Indicated Resolved Time COVID-19 Rule Out 12/18/2020 12/18/2020 12/19/2020 11:06 AM LEARNING SUPPORT ASSISTANT COVID-19 Rule Out 07/06/2022 07/06/2022 07/06/2022 9:40 PM CDT documented as of this encounter Care Teams Black Jack Dealer Relationship Specialty Start Date End Date Jason Manriquez MD [address] [place] [address] PCP - General INTERNAL MEDICINE 04/01/20 12/17/20 Tamar Aguilar NP [address] [phone] PCP - General Nurse Practitioner Family 12/18/20 documented as of this encounter
--- OUTSIDE RECORDS SUMMARY | 2025-01-07 18:40 | XMS_ITS | Clinical Summary ---
Author Organization [facility] Address [address] [facility] [place] [address] Care Team Providers Care [employer] Team Member Name Role Phone May Moody MAINFRAME SYSTEMS ENGINEER Unavailable No, Physician Primary Care Provider [phone] Allergies Active Allergy Reactions Criticality Noted Date Comments Hydrocortisone Palpitations Low 02/09/2024 Levofloxacin Anaphylaxis High 02/09/2024 Ceftriaxone Itching Low 02/09/2024 Tramadol Diarrhea Low 02/09/2024 Social History Tobacco Use Types Packs/Day Years Used Date Smoking Tobacco: Never Assessed Personal Safety Answer Date Recorded Have you ever been in or are you currently in a harmful physical or emotional relationship or is someone making you feel afraid or unsafe? Denies 07/18/2024 Comments No Sex and Gender Information Value Date Recorded Sex Assigned at Not on file Legal Sex Female 9:11 AM CDT Gender Identity Not on file Sexual Orientation Not on file Obstetrics History Last Filed Vital Signs Vital Sign Reading Time Taken Comments Blood Pressure 134/68 07/18/2024 6:54 PM CDT Pulse 83 07/18/2024 6:53 PM CDT Temperature 36.4 C (97.5 F) 07/18/2024 6:53 PM CDT Respiratory Rate 18 07/18/2024 6:53 PM CDT Oxygen Saturation 97% 07/18/2024 6:53 PM CDT Inhaled Oxygen Concentration - - Weight 54.4 kg (120 lb) 07/18/2024 6:57 PM CDT Height 165.1 cm (5' 5 ) 07/18/2024 6:57 PM CDT Body Mass Index 19.97 07/18/2024 6:57 PM CDT Plan of Treatment Health Maintenance Due Date Last Done Comments Breast Cancer Screening-Mammogram 1975 Colon Cancer Screening-Colonoscopy 1975 Depression Screening 1975 Hepatitis C Screening 1975 Regular Well Visit/Exam 18-64 1993 DTaP/Tdap/Td Vaccine (2 - Td or Tdap) 10/18/2019 10/18/2009 Influenza Vaccine (#1) 2024 Hepatitis B Screening Completed 11/30/2009 , 10/18/2009 Pneumococcal vaccine <65 Aged Out No longer eligible based on patient's age to complete this topic Insurance [employer] [facility] [employer] [facility] Care Teams [employer] Team Member Relationship Specialty Start Date End Date No, Physician PCP - General 02/23/24 May Moody NP [address] [place] [address] Nurse Practitioner 02/09/24
--- OUTSIDE RECORDS SUMMARY | 2025-01-07 18:40 | XMS_ITS | Data Portability ---
Author Organization [facility] Address [address] [place] [address] Assessment No assessment recorded. Plan of Treatment Reminders Order Date Submit Date Provider Last Modified By Organization Details Last Modified Time Details Appointments None recorded. Lab None recorded. Referral None recorded. Procedures None recorded. Surgeries None recorded. Imaging None recorded. Medication Orders Eugene 10 mg-325 mg tablet 2015 016 [facility] [employer] [facility], [address], [address], [place], [address], 6 04:38:44 Neurontin 300 mg capsule 2015 016 [facility] [employer] [address], [facility] [address], [place], [address], 6 04:38:40 Neurontin 300 mg capsule 2015 016 [facility] [employer] [facility] [address], [facility] [address], [place], [address], 6 04:37:05 Eugene 10 mg-325 mg tablet 2015 016 [facility] [employer] [facility] [address], [address], [place], [address], 6 04:37:05 Patient TargetsNo targets recorded. Patient InstructionsNo instructions recorded. Hospital Discharge Instructions Patient Instructions None recorded. Patient Goals None recorded. Procedures Surgical History Date Name Laterality Status Provider Name and Address Organization Details Recorded Time 01/21/20 15 Knee Surgery completed [facility] 01/31/2016 16:06:59 10/13/20 09 Knee Surgery completed [facility] 01/31/2016 16:06:52 04/19/20 02 Hysterectomy completed [facility] 01/31/2016 16:04:08 03/16/19 97 Laparoscopy completed [facility] 01/31/2016 16:05:58 02/13/19 85 Tonsillectomy/Ad enoidectomy completed [facility] 01/31/2016 16:04:55 Imaging Results None recorded. Procedure Notes None recorded. Medical Equipment None Reported. Allergies Allergen ID Allergen Name Allergen Category Reaction Reaction Severity Criticality Documentation Date Start Date Code Code System Note Provider Name and Address Organization Details Recorded Time 7654 Levaquin medicatio n anaphylax is severe Not available 01/31/2016 50937 2 RxNorm [facility] 6 15:59:34 7655 Ultram medicatio n vomiting severe Not available 01/31/2016 47281 6 RxNorm [facility] 6 15:59:47 7656 cortisone medicatio n irregular heart rate moderate Not available 01/31/2016 2878 RxNorm [facility] 6 16:00:17 7657 adhesive tape environme nt,medica tion rash moderate Not available 01/31/2016 34995 UNK blist ers [facility] 6 16:00:34 Medications Name Sig Start Date Stop Date Status Note LastModified by Organization Details LastModified Time Keppra 500 mg tablet Take 1 tablet twice a day by oral route. active Not Available Not Available No t Available Neurontin 300 mg capsule Take 1 capsule every day by oral route at bedtime. 016 active Not Available Not Available Not Avai lable Effexor XR 150 mg capsule,ext ended release Take 1 capsule every day by oral route. active Not Available Not Available No t Available Eugene 10 mg-325 mg tablet TAKE 1-2 EVERY 4-6 HOURS NEEDED FOR PAIN. MUST LAST ATLEAST 30 DAYS 017 active Not Available Not Available Not Avai lable Vitals Date Recorded Body height Body weight Body mass index (BMI) Body temperature Heart rate Respiratory rate Oxygen saturation Oxygen saturation in Arterial blood by Pulse oximetry Systolic blood pressure Diastolic blood pressure Provider Name and Address Organization Details Last Updated DateTime 6 165.1 cm 01978.6 8 g 20.1 kg/m2 97.7 [degF] 140 /min 20 /min 95 % 95 % 146 mm[Hg] 80 mm[Hg] [facility] 6 15:22:14 Date Recorded Pain severity - 0-10 verbal numeric rating [Score] - Reported Provider Name and Address Organization Details Last Updated DateTime 06/19/2016 4 Not Available [facility] 8 06:29:24 Date Recorded Body height Body weight Body mass index (BMI) Body temperature Respiratory rate Heart rate Oxygen saturation Oxygen saturation in Arterial blood by Pulse oximetry Systolic blood pressure Diastolic blood pressure Provider Name and Address Organization Details Last Updated DateTime 6 165.1 cm 20159.1 2 g 19.1 kg/m2 98.3 [degF] 20 /min 73 /min 99 % 99 % 130 mm[Hg] 82 mm[Hg] [facility] 6 15:58:33 Date Recorded Pain severity - 0-10 verbal numeric rating [Score] - Reported Provider Name and Address Organization Details Last Updated DateTime 01/31/2016 6 Not Available [facility] 8 06:28:56 Social History Question Answer Notes LastModified by Organizat ion Details LastModified Time Tobacco Smoking Status Current Every Day Smoker [facility] 01/31/2016 16:01:40 Do You Have An Advance Directive? No [email or web address] Information not available 01/31/2016 What Is Your Level Of Alcohol Consumption? None [email or web address] Information not available 01/31/2016 Auto Related Injury? No [email or web address] Information not available 01/31/2016 What Is Your Level Of Caffeine Consumption? Moderate Information not available 01/31/2016 How Much Tobacco Do You Chew? None [email or web address] Information not available 01/31/2016 Are You Currently Employed? No [email or web address] Information not available 01/31/2016 What Type Of Diet Are You Following? REGULAR [email or web address] Information not available 01/31/2016 Which Illicit Or Recreational Drugs Have You Used? None [email or web address] Information not available 01/31/2016 Which Of Your Hands Is Dominant? Right [email or web address] Information not available 01/31/2016 Single Or Multi-level Home/work? Single Level Home [email or web address] Information not available 01/31/2016 Live Alone Or With Others? With Others Information not available 01/31/2016 Welcome Letter Signed? Yes Information not available 01/31/2016 If Injured, Is Litigation Ongoing? No Information not available 01/31/2016 How Much Tobacco Do You Smoke? 0.5 PPD [email or web address] Information not available 01/31/2016 How Many Years Have You Smoked Tobacco? 25 [email or web address] Information not available 01/31/2016 Work Related Injury? No [email or web address] Information not available 01/31/2016 Sex: Unknown Functional Status Question Answer Note LastModified by Organization D etails LastModified Time Are you able to care for yourself? Yes [email or web address] Information n ot available 01/31/2016 Mental Status None recorded. Family History Nothing Reported. Medical History No medical history recorded. Gynecological HistoryNo gynecological history recorded. Obstetrics History GPAL:G 0 P 0 0 0 0 Past Encounters None Reported. Health Concerns Section Related Observation LastModified by Organization Detai ls LastModified Time None Recorded Concern Status LastModified by Organization Details LastModified Time None Recorded Advance Directives Directive N: Payers Encounter Date Sequence Insurance Name Policy Number Policy Blcok Covered Member ID Block Member ID Guarantor Name 01/31/2016 1 [place] [employer] Reina Gottlieb [id number] Reina Gottlieb 06/19/2016 1 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 Xavier almodovar [place] - [facility] 01/31/2016 17:06:06 06/19/2016 text/html KneeReported bypatient.Location: right follow-up right knee. 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 She is doing better at this point in time than she had prior has in the past. She is presently working. Physical examination knee demonstrates no significant effusion she has excellent extension with excellent stability throughout the range of motion. Crepitus is significantly diminished. No new x-rays were obtained. Assessment patient doing satisfactorily. We'll allow her to be as active as she can tolerate. We have discussed tapering pain medication which we will hope to do in the future. He'll follow up in 6 months. Xavier Esparza [facility] [place] [facility] 06/19/2016 16:01:50 OBGyn Episode No OBEpisode recorded.
--- OUTSIDE RECORDS SUMMARY | 2025-01-07 18:40 | XMS_ITS | Referral Summary ---
Author Organization [facility] Address [address] [place] [address] Care Team Providers Care Barrel Loader And Cleaner Name Role Phone May Moody INCOME TAX PREPARER Unavailable No, Physician Primary Care Provider [phone] Allergies Active Allergy Reactions Criticality Noted Date [...] 07/18/2024 6:57 PM CDT Plan of Treatment Not on file Insurance [employer] [facility] [employer] [facility] Care Teams Barrel Loader And Cleaner Relationship Specialty Start Date End Date No, Physician PCP - General 02/23/24 May Moody NP [address] [place] [address] Nurse Practitioner 02/09/24
[2025-01-07] MEDS: ACETAMINOPHEN 500 MG TABLET 1000 MG PO (19:21)
[2025-01-07] MEDS: ALPRAZolam (*CRX) 0.5 MG TABLET PO (19:21)
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
[2025-01-07 21:30] VITALS: BP 106/68; PULSE 75; RESP 18; TEMP 36.6; O2SAT 100
== END 2025-01-07 21:30 | disposition home or self-care (01) ==
PROVIDERS: Emergency Provider Emergency Medicine; PCP Family Medicine
DX: S00.93XA Contusion of unspecified part of head, initial encounter (principal); M25.561 Pain in right knee; J44.9 Chronic obstructive pulmonary disease, unspecified; Z87.891 Personal history of nicotine dependence; Y04.2XXA Assault by strike against or bumped into by another person, initial encounter
CPT/HCPCS: 70450; 70486; 71100; 73562; 99284; A9270

== ENCOUNTER 2025-01-08 09:11 | Emergency (ER) | payer MEDICARE, MEDICAID, SELFPAY ==
[2025-01-08] VITALS (15 sets, daily range): BP systolic 102–158; BP diastolic 66–85; PULSE 49–103; RESP 11–20; TEMP 35.9–36.7; O2SAT 94–100
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
[2025-01-08] MEDS: NALOXONE HCL INJ 2 MG/2 ML AMP IV PUSH (09:31)
[2025-01-08] MEDS: LORazepam INJ (*CRX) 2 MG/ML VIAL 1 MG IV PUSH ×3 (09:34→11:20)
[2025-01-08] MEDS: SODIUM CHLORIDE 0.9% IV 1,000 ML 999 ML IV CONT (09:35)
[2025-01-08 09:40] LABS: Basophils Absolute Auto 0.06 K/mm3 (0.00-0.10); Eosinophils Percent Auto 5.1 % (1.0-6.0); Hematocrit 31.4 % (35.0-49.0); Hemoglobin 9.3 g/dL (12.0-15.0); Immature Granulocyte Absolute 0.01 K/mm3 (0.00-0.00); Immature Granulocyte Percent A 0.2 % (0.0-0.0); Lymphocytes Absolute Auto 1.73 K/mm3 (1.10-4.50); Lymphocytes Percent Auto 29.3 % (18.0-42.0); Mean Corpuscular HGB Conc 29.6 g/dL (32-36); Mean Corpuscular Hemoglobin 23.5 pg (27.0-31.0); Mean Corpuscular Volume 79.3 fL (78.0-102.0); Mean Platelet Volume 9.8 fl (9.2-11.8); Monocytes Absolute Auto 0.36 K/mm3 (0.10-0.90); Monocytes Percent Auto 6.1 % (2.0-11.0); Neutrophils Absolute Auto 3.44 K/mm3 (1.70-7.20); Neutrophils Percent Auto 58.3 % (50.0-70.0); Platelet Count Result 366 K/mm3 (150-420); Red Blood Count 3.96 M/mm3 (4.20-5.40); White Blood Count 5.9 K/mm3 (4.8-10.8)
[2025-01-08 09:42] LABS: Alanine Aminotransferase 21 U/L (14-59); Albumin Level 3.6 g/dL (3.4-5.0); Alkaline Phosphatase 153 U/L (46-116); Anion Gap 10 mmol/L (4-12); Aspartate Amino Transferase 24 U/L (15-37); Bilirubin,Total 0.4 mg/dL (0.00-1.00); Blood Urea Nitrogen 11 mg/dL (7-18); Carbon Dioxide 28 mmol/L (21-32); Chloride 101 mmol/L (98-108); Estimated Glomerular Filt Rate > 60; Glucose 172 mg/dL (70-99); Osmolality Calculated 291 mOsm/kg (285-295); Potassium 3.6 mmol/L (3.5-5.1); Sodium 139 mmol/L (136-145); Total Protein 7.5 g/dL (6.4-8.2)
[2025-01-08 09:47] LABS: Acetaminophen < 2 ug/mL (10-30)
[2025-01-08 09:47] LABS: Ethanol < 3 mg/dL (0-6); Salicylate 1.3 mg/dL (2.8-20.0); Troponin I 7.5 ng/L (0.00-60.4)
[2025-01-08 10:19] LABS: SARS-CoV-2 RNA PCR Negative (Negative)
[2025-01-08 10:25] LABS: Influenza A QL RT-PCR Negative (Negative); Influenza B QL RT-PCR Negative (Negative); RSV RNA, RT-PCR Negative (Negative)
--- NOTE | 2025-01-08 10:44 | PC.NURSE ---
0940 pt states she had to go bathroom to get drugs out of her vagina ERP made aware and [place] [employer] NOTIFIED 0955 [employer] DEPARTMENT ARRIVED AT ER AND ERP AND RN AND STOCK FEEDER IN ROOM TO TAKE DRUG CONTAINER OUT OF VAGINA WITH SPECULUM AND RING FORCEPS CONTAINER PLACE IN [place] BAG HELD BY STOCK FEEDER
[2025-01-08 11:22] LABS: Appearance Urine Clear (Clear); Bilirubin Urine Negative (Negative); Blood Urine Negative (Negative); Color Urine Yellow (Yellow); Glucose Urine UA Negative (Negative); Ketones Urine Negative (Negative); Leukocyte Esterase Ur Negative LEU/UL (Negative); Nitrate Urine Negative (Negative); Specific Grav Ur 1.025 (1.010-1.020); Urobilinogen Urine 0.2 mg/dL (0.2-1.0); pH Urine 6.5 (5.0-8.0)
[2025-01-08 11:26] LABS: Add Urine Microscopic? NO; Protein Urine Negative (Negative)
[2025-01-08 11:28] LABS: Amphetamine Screen Urine Positive (Negative); Barbiturate Screen Urine Negative (Negative); Benzodiazepines Screen Urine Positive (Negative); Cannabinoid Screen Urine Negative (Negative); Cocaine Screen Urine Positive (Negative); Methadone Screen Urine Positive (Negative); Opiate Screen Urine Positive (Negative); Phencyclidine Screen Urine Negative (Negative)
[2025-01-08] MEDS: HALOPERIDOL LACTATE 5 MG/ML VIAL IV PUSH ×2 (12:38→13:27)
--- NOTE | 2025-01-08 22:25 | PC.NURSE ---
Pt called her son, Ty, to come pick her up.
== END 2025-01-08 22:45 | disposition home or self-care (01) ==
PROVIDERS: Emergency Provider Emergency Medicine
DX: T40.2X1A Poisoning by other opioids, accidental (unintentional), initial encounter (principal); Z87.891 Personal history of nicotine dependence; Z20.822 Contact with and (suspected) exposure to COVID-19
CPT/HCPCS: 36415; 70450; 80053; 80143; 80179; 80307; 81003; 82077; 84484; 85025; 87637; 93005; 96361; 96374; 96375; 96376; 99284; J1630; J2060; J2310; J7030

== ENCOUNTER 2025-01-14 04:10 | Emergency (ER) | payer MEDICARE, MEDICAID, SELFPAY ==
--- OUTSIDE RECORDS SUMMARY | 2025-01-14 04:12 | XMS_ITS | Encounter Summary ---
Author Organization [facility] Address [address] [place] [id number] Care Team Providers Care Bag Sorter Name Role Phone Jason Manriquez MD Primary Care Provider [phone] Tamar Aguilar LAP WINDER Primary Care Provider [phone] Encounter Details Date Type Department Care Team (Late st Contact Info) Description 04/18/2019 Abstract [facility] CONVERSION [address] [place] [address] , Generic Conversion, Social History Tobacco Use Types Packs/Day Years Used Date Smoking Tobacco: Never Assessed Comments Unknown Sex and Gender Information Value Date Recorded Sex Assigned at Not on file 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 Gender Identity Not on file Sexual Orientation Not on file documented as of this encounter Plan of Treatment Not on file documented as of this encounter Visit Diagnoses Not on filedocumented in this encounter Additional Health Concerns Infection Onset Date Last Indicated Resolved Time COVID-19 Rule Out 12/18/2020 12/18/2020 12/19/2020 11:06 AM SPEED READING TEACHER COVID-19 Rule Out 07/06/2022 07/06/2022 07/06/2022 9:40 PM CDT documented as of this encounter Care Teams Bag Sorter Relationship Specialty Start Date End Date Jason Manriquez MD [address] [place] [address] PCP - General INTERNAL MEDICINE 04/01/20 12/17/20 Tamar Aguilar NP [address] [phone] PCP - General Nurse Practitioner Family 12/18/20 documented as of this encounter
--- OUTSIDE RECORDS SUMMARY | 2025-01-14 04:12 | XMS_ITS | Clinical Summary ---
Author Organization [facility] Address [address] [place] [address] Care Team Providers Care Chemist Intern Name Role Phone Tamar Aguilar NP Primary Care Provider [phone] Allergies Active Allergy Reactions Criticality Noted Date [...] Problem Noted Date Diagnosed Date Septic arthritis ([facility]) 07/13/2022 Immunizations Name Administration Dates Next Due Tdap (Boostrix) 04/12/2020(Deferred: Patient/family declined - Pt states she just had it 1 year go.) Social History Tobacco Use Types Packs/Day Years Used Date Smoking Tobacco: Every Day Cigarettes Comments No Sex and Gender Information Value Date Recorded Sex Assigned at Not on file 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 Gender Identity Not on file Sexual Orientation [...] Andres RN Medical Devices Implanted Type Area Software Engineering Project Manager Device Identifier Shelf Expiration Date Model / Serial / Lot Cement Bone Refobacin Sterile Latex Free Disposable - [id number] Implanted:Qty: 1 on 07/15/2022 by Jorden Reid MD at [facility] Cement Implant Right: Knee [employer] [id number] 04/10/2024 [id number] / / [id number] Cement Bone Refobacin Sterile Latex Free Disposable - [id number] Implanted:Qty: 1 on 07/15/2022 by Jorden Reid MD at [facility] Cement Implant Right: Knee [employer] [id number] 04/10/2024 [id number] / / [id number] Cement Bone Refobacin Sterile Latex Free Disposable - [id number] Implanted:Qty: 1 on 07/15/2022 by Jorden Reid MD at [facility] Cement Implant Right: Knee [employer] [id number] 04/10/2024 [id number] / / [id number] Cement Bone Refobacin Sterile Latex Free Disposable - [id number] Implanted:Qty: 1 on 07/15/2022 by Jorden Reid MD at [facility] Cement Implant Right: Knee [employer] [id number] 01/09/2024 [id number] / / [id number] Explanted Type Area Software Engineering Project Manager Device Identifier Shelf Expiration Date Model / Serial / Lot Drill Surgical Antirotational Screw Disposable [employer] - [id number] Explanted:Qty: 1 on 07/15/2022 by Jorden Reid MD at [facility] Drill Right: Knee [employer] [id number] 04/21/2032 [id number] / / [id number] Insurance [facility] Advance Directives * Full Code (Latest Code Status on File) Date Activated Date Inactivated Comments 07/13/2022 8:52 PM 07/30/2022 6:36 PM Care Teams Chemist Intern Relationship Specialty Start Date End Date Tamar Aguilar NP [address] [id number] PCP - General Nurse Practitioner Family 12/18/20
--- OUTSIDE RECORDS SUMMARY | 2025-01-14 04:12 | XMS_ITS | Referral Summary ---
Author Organization [facility] Address [address] [place] [place] [address] Care Team Providers Care Intern Architect Name Role Phone May Moody SOAKING PIT OPERATOR Unavailable No, Physician Primary Care Provider [phone] Allergies Active Allergy Reactions Criticality Noted Date [...] Treatment Not on file Insurance [employer] [facility] [employer] [facility] AETNA [facility] Care Teams Intern Architect Relationship Specialty Start Date End Date No, Physician PCP - General 02/23/24 May Moody NP [address] [place] [address] Nurse Practitioner 02/09/24
--- OUTSIDE RECORDS SUMMARY | 2025-01-14 04:12 | XMS_ITS | Clinical Summary ---
Author Organization [facility] Address [address] [place] [address] Care Team Providers Care Sheeter Waxer Operator Name Role Phone May Moody DESKTOP ADMINISTRATOR Unavailable No, Physician Primary Care Provider [phone] Allergies Active Allergy Reactions Criticality Noted Date [...] to complete this topic Insurance [employer]NA [facility] AETNA [facility] Care Teams Sheeter Waxer Operator Relationship Specialty Start Date End Date No, Physician PCP - General 02/23/24 May Moody NP [address] [place] [address] Nurse Practitioner 02/09/24
--- OUTSIDE RECORDS SUMMARY | 2025-01-14 04:12 | XMS_ITS | Encounter Summary ---
Author Organization [facility] Address [facility] [place] [address] Care Team Providers Care Home Health Provider Name Role Phone Jason Manriquez MD Primary Care Provider [phone] Tamar Aguilar NP Primary Care Provider [phone] Encounter Details Date Type Department Care Team (Late st Contact Info) Description 06/11/[address] 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 Gender Identity Not on file Sexual Orientation Not on file documented as of this encounter Plan of Treatment Not on file documented as of this encounter Visit Diagnoses Not on filedocumented in this encounter Additional Health Concerns Infection Onset Date Last Indicated Resolved Time COVID-19 Rule Out 12/18/2020 12/18/2020 12/19/2020 11:06 AM OPERATIONS DISPATCHER COVID-19 Rule Out 07/06/2022 07/06/2022 07/06/2022 9:40 PM CDT documented as of this encounter Care Teams Home Health Provider Relationship Specialty Start Date End Date Jason Manriquez MD [address] [place] [address] PCP - General INTERNAL MEDICINE 04/01/20 12/17/20 Tamar Aguilar NP [address] [phone] PCP - General Nurse Practitioner Family 12/18/20 documented as of this encounter
--- OUTSIDE RECORDS SUMMARY | 2025-01-14 04:13 | XMS_ITS | Data Portability ---
Author Organization [facility] Address [address] [place] [address] Assessment No assessment recorded. Plan of Treatment Reminders Order Date Submit Date Provider Last Modified By Organization Details Last Modified Time Details Appointments None recorded. Lab None recorded. Referral None recorded. Procedures None recorded. Surgeries None recorded. Imaging None recorded. Medication Orders Prescott 10 mg-325 mg tablet 2015 016 [facility] [employer] [facility], [address], [address], [place], [address], 6 04:38:44 Neurontin 300 mg capsule 2015 016 [facility] [employer] [address], [facility] [address], [place], [address], 6 04:38:40 Neurontin 300 mg capsule 2015 016 [facility] [employer] [facility] [address], [facility] [address], [place], [address], 6 04:37:05 Prescott 10 mg-325 mg tablet 2015 016 [facility] [employer] [facility]., [address], [address], [place], [address], 6 04:37:05 Patient TargetsNo targets recorded. Patient InstructionsNo instructions recorded. Hospital Discharge Instructions Patient Instructions None recorded. Patient Goals None recorded. Procedures Surgical History Date Name Laterality Status Provider Name and Address Organization Details Recorded Time 01/21/20 15 Knee Surgery completed [facility] 01/31/2016 16:06:59 10/13/20 09 Knee Surgery completed [facility] 01/31/2016 16:06:52 04/19/20 02 Hysterectomy completed [facility] 01/31/2016 16:04:08 03/16/19 97 Laparoscopy completed [facility] 01/31/2016 16:05:58 02/13/19 85 Tonsillectomy/Ad enoidectomy completed [facility] 01/31/2016 16:04:55 Imaging Results None recorded. Procedure Notes None recorded. Medical Equipment None Reported. Allergies Allergen ID Allergen Name Allergen Category Reaction Reaction Severity Criticality Documentation Date Start Date Code Code System Note Provider Name and Address Organization Details Recorded Time 7654 Levaquin medicatio n anaphylax is severe Not available 01/31/2016 09977 2 RxNorm [facility] 6 15:59:34 7655 Ultram medicatio n vomiting severe Not available 01/31/2016 21871 6 RxNorm [facility] 6 15:59:47 7656 cortisone medicatio n irregular heart rate moderate Not available 01/31/2016 2878 RxNorm [facility] 6 16:00:17 7657 adhesive tape environme nt,medica tion rash moderate Not available 01/31/2016 60600 UNK blist ers [facility] 6 16:00:34 Medications Name Sig Start Date [...] Not Available Not Available No t Available Prescott 10 mg-325 mg tablet TAKE 1-2 EVERY [...] Details Last Updated DateTime 6 165.1 cm 34914.6 8 g 20.1 kg/m2 97.7 [degF] 140 /min 20 /min 95 % 95 % 146 mm[Hg] 80 mm[Hg] [facility] 6 15:22:14 Date Recorded Pain severity - 0-10 verbal numeric rating [Score] - Reported Provider Name and Address Organization Details Last Updated DateTime 06/19/2016 4 Not Available [facility] 8 06:29:24 Date Recorded Body height Body weight Body mass index (BMI) Body temperature Respiratory rate Heart rate Oxygen saturation Oxygen saturation in Arterial blood by Pulse oximetry Systolic blood pressure Diastolic blood pressure Provider Name and Address Organization Details Last Updated DateTime 6 165.1 cm 91576.1 2 g 19.1 kg/m2 98.3 [degF] 20 /min 73 /min 99 % 99 % 130 mm[Hg] 82 mm[Hg] [facility] 6 15:58:33 Date Recorded Pain severity - 0-10 verbal numeric rating [Score] - Reported Provider Name and Address Organization Details Last Updated DateTime 01/31/2016 6 Not Available [facility] 8 06:28:56 Social History Question Answer Notes LastModified by Organizat ion Details LastModified Time Tobacco Smoking Status Current Every Day Smoker [facility] 01/31/2016 16:01:40 Do You Have An Advance Directive? No [email or web address] Information not available 01/31/2016 What Is Your Level Of Alcohol Consumption? None [email or web address] Information not available 01/31/2016 Auto Related Injury? No Information not available 01/31/2016 What Is Your Level Of Caffeine Consumption? Moderate [email or web address] Information not available 01/31/2016 How Much Tobacco Do You Chew? None Information not available 01/31/2016 Are You Currently Employed? No [email or web address] Information not available 01/31/2016 What Type Of Diet Are You Following? REGULAR [email or web address] Information not available 01/31/2016 Which Illicit Or Recreational Drugs Have You Used? None [email or web address] Information not available 01/31/2016 Which Of Your Hands Is Dominant? Right [email or web address] Information not available 01/31/2016 Single Or Multi-level Home/work? Single Level Home [email or web address] Information not available 01/31/2016 Live Alone Or With Others? With Others [email or web address] Information not available 01/31/2016 Welcome Letter Signed? Yes [email or web address] Information not available 01/31/2016 If Injured, Is Litigation Ongoing? No Information not available 01/31/2016 How Much Tobacco Do You Smoke? 0.5 PPD [email or web address] Information not available 01/31/2016 How Many Years Have You Smoked Tobacco? 25 [email or web address] Information not available 01/31/2016 Work Related Injury? No [email or web address] Information not available 01/31/2016 Sex: Unknown Functional Status Question Answer Note LastModified by Organization D etails LastModified Time Are you able to care for yourself? 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 Xavier almodovar [place] [facility] 01/31/2016 17:06:06 06/19/2016 text/html KneeReported [...] follow up in 6 months. Xavier Esparza [facility] [place] [facility] 06/19/2016 16:01:50 OBGyn Episode No OBEpisode recorded.
[2025-01-14 04:15] VITALS: BP 149/98; PULSE 72; RESP 18; TEMP 36.1; O2SAT 98
--- NOTE | 2025-01-14 04:28 | ED.ALLEREA ---
HPI - Allergic Reaction General Chief complaint: Allergic Reaction Stated complaint: allergic reaction Time Seen by Provider: 01/14/25 04:28 Source: patient Mode of arrival: ambulatory Limitations: no limitations History of Present Illness HPI narrative: 49-year-old female with a history of IVDA, smoking, COPD presents to the ED with a 2 hour history of -- swelling of the tongue. She had difficulty swallowing but this has resolved. -- erythematous rash on the abdomen which was itchy. The rash appears to have resolved. -- vomiting. No throat swelling. No shortness of breath. No lightheadedness. No new recent medications taken. The patient took 50 mg of Benadryl with improvement of symptoms. MD complaint: allergic reaction and hives Onset (ago): hour(s) ( 2 hours ago) Exposure: unknown Symptoms: rash and tongue swelling Severity: moderate Treatment prior to arrival: benadryl Previous Allergic Reaction History: none Related Data Allergies Allergy/AdvReac Type Severity Reaction Status Date / Time ceftriaxone (From Rocephin) Allergy Flushing Verified 01/14/25 04:26 cortisone Allergy Flushing Verified 01/14/25 04:26 levofloxacin (From Levaquin) Allergy Flushing Verified 01/14/25 04:26 Sulfa (Sulfonamide Allergy Swelling Verified 01/14/25 04:26 Antibiotics) of Lip/Tongue/Throat tramadol Allergy Flushing Verified 01/14/25 04:26 aripiprazole (From Abilify) AdvReac Severe Suicide Verified 01/14/25 04:26 Review of Systems Review of Systems: All systems reviewed & are unremarkable except as noted in HPI and below Constitutional: Constitutional: Reports as per HPI and Reports no additional constitutional complaints Eyes: Eyes: Reports as per HPI and Reports no additional eye complaints ENT: Reports system reviewed and no additional complaints, except as documented and Reports as per HPI Cardiovascular: Cardiovascular: Reports as per HPI and Reports no additional cardiovascular complaints Respiratory: Respiratory: Reports as per HPI and Reports no additional respiratory complaints Gastrointestinal: Gastrointestinal: Reports as per HPI, Reports no additional gastrointestinal complaints and Reports vomiting Genitourinary: Genitourinary: Reports no additional female genitourinary complaints and Reports as per HPI Musculoskeletal: Musculoskeletal: Reports no additional musculoskeletal complaints and Reports as per HPI Integumentary/Breasts: Skin/Breast: Reports system reviewed and no additional complaints, except as docu and Reports as per HPI Neurologic: Reports system reviewed and no additional complaints, except as documented and Reports as per HPI Psychiatric: Psychiatric: Reports no additional psychiatric complaints and Reports as per HPI Endocrine: Endocrine: Reports no additional endocrine complaints and Reports as per HPI Hematologic/Lymphatic: Hematologic/Lymphatic: Reports no additional hematologic/lymphatic complaints and Reports as per HPI Allergic/Immunologic: Allergic/Immunologic: Reports no additional allergic/immunologic complaints and Reports as per HPI [facility] Past Medical History Medical History Right ankle pain IVDU (intravenous drug user) COPD (chronic obstructive pulmonary disease) Surgical History Surgical History History of lumpectomy of left breast H/O knee surgery H/O: hysterectomy History of tonsillectomy Social History Social History Smoking packs per day: 1.5 Smoking cigarettes per day: 30.0 Smoking status: Former smoker Tobacco type: cigarettes Second hand tobacco smoke exposure: Yes Smoking end date: 07/08/22 Alcohol intake: unknown Substance use: current Substance use type: opiates Lack of Transportation: No Lack of Food: Never True Current Housing: I Have Housing Concerned About Future Housing: No Difficulty Paying Gas/Electric Bills: YES Difficulty Paying for Meds: No Currently Unemployed: YES Education: Associate Degree Living arrangements: with family Gender identity (if verbalized by the patient): Female Spiritual care concerns: No Exam Narrative: Blood pressure 149/98. Oxygen saturation of 98% on room air with a respiratory rate of 18. Const: General: ill appearing Orientation/consciousness: patient oriented x3 Limitations: no limitations HENMT: Head: normal to inspection Ears: external ears normal Face/Nose/Sinus: Normal external nose present Face and sinus: normal facial exam Mouth: Yes Normal oral and palatal mucosa present Throat: posterior oropharynx normal Other: No tongue swelling is noted this point. Speech is clear. No stridor noted. Eyes: Conjunctivae: conjunctivae normal and conjunctival abnormality Pupils: Equal, round and reactive pupils present EOM: EOMs intact bilaterally Direct Ophthalmoscopy: no photophobia Neck: Neck: normal visual inspection, no lymphadenopathy and no meningeal signs Chest: Chest palpation & inspection: normal inspection of the chest Resp: Effort & Inspection: normal respiratory effort Auscultation: clear to auscultation bilaterally Cardio: Rate: regular rate Rhythm: regular rhythm GI: Auscultation: normal bowel sounds Other: No tenderness/ rigidity /rebound. : General: Yes no CVA tenderness Back/Spine/Pelvis: Back: no CVA tenderness Skin: General skin exam: normal color Other: Scarring of the skin on the back of her hands on the left leg. No urticarial rash noted. Minimally erythema erythematous rash noted on abdominal wall. Neuro: General: patient oriented x3, moves all extremities, no meningeal signs, no focal motor deficits and CN's II-XI intact bilaterally Cranial nerves: Yes Nystagmus not present Speech: normal speech Extrem: General: normal to inspection and no clubbing, cyanosis or edema Psych: Mental Status: mental status grossly normal Affect: normal affect Attitude: cooperative Course Course Emergency Course: Allergic reaction-- no obvious precipitant noted. Vital Signs Vital signs: Vital Signs Temperature 36.1 C L 01/14/25 04:15 Pulse Rate 72 01/14/25 04:15 Respiratory Rate 18 01/14/25 04:15 Blood Pressure 149/98 H 01/14/25 04:15 Pulse Oximetry 98 01/14/25 04:15 Oxygen Delivery Room Air 01/14/25 04:15 Temperature 36.1 C L 01/14/25 04:15 Pulse Rate 72 01/14/25 04:15 Respiratory Rate 18 01/14/25 04:15 Blood Pressure 149/98 H 01/14/25 04:15 Pulse Oximetry 98 01/14/25 04:15 Oxygen Delivery Room Air 01/14/25 04:15 MDM - Allergic Reaction MDM Narrative Medical decision making narrative: Allergic reaction Differential Diagnosis Differential diagnosis: Likely angioedema and viral enanthem Discharge Plan Discharge Clinical Impression: Allergic reaction Patient Disposition: Home, Self-Care Condition: Stable Instructions: Antibiotic Form, General Allergic Reaction (ED) Patient Language: Indonesian Prescriptions: No Action fluticasone propionate [Allergy Relief (fluticasone)] 50 mcg/actuation spray,suspension 1 spray intranasal DAILY Qty: 9.9 0RF Rx Instructions: administer into each nostril amoxicillin-pot clavulanate 875-125 mg tablet 1 tablet PO BID Qty: 10 0RF benzonatate 200 mg capsule 200 mg PO BID PRN (Reason: cough) Qty: 20 0RF polyethylene glycol 3350 [ClearLax] 17 gram/dose powder See Rx Instructions .ROUTE .COMPLEX Qty: 510 0RF Dose Instruction: 17 G ORALLY DAILY FOR 30 DAYS Rx Instructions: 17 G ORALLY DAILY FOR 30 DAYS meloxicam 15 mg tablet 15 mg PO DAILY Qty: 90 0RF albuterol sulfate 90 mcg/actuation HFA aerosol inhaler 2 puff INHALATION Q4H PRN (Reason: Shortness Of Breath Or Wheezing) Qty: 8.5 3RF venlafaxine 150 mg capsule,extended release 24hr See Rx Instructions .ROUTE .COMPLEX Qty: 90 0RF Dose Instruction: TAKE 1 CAPSULE BY MOUTH DAILY Rx Instructions: TAKE 1 CAPSULE BY MOUTH DAILY trazodone 50 mg tablet See Rx Instructions .ROUTE .COMPLEX Qty: 90 0RF Dose Instruction: TAKE 1 TABLET BY MOUTH EVERY BEDTIME Rx Instructions: TAKE 1 TABLET BY MOUTH EVERY BEDTIME clonidine HCl 0.3 mg tablet See Rx Instructions .ROUTE .COMPLEX Qty: 180 0RF Dose Instruction: TAKE 1 TABLET BY MOUTH 3 TIMES A DAY Rx Instructions: TAKE 1 TABLET BY MOUTH 3 TIMES A DAY budesonide-formoterol [Symbicort] 80-4.5 mcg/actuation HFA aerosol inhaler See Rx Instructions .ROUTE .COMPLEX Qty: 10.2 2RF Dose Instruction: 2 PUFF INHALED EVERY 12 HOURS Rx Instructions: 2 PUFF INHALED EVERY 12 HOURS Follow-up/Referrals: Julio Fowler DO [Primary Care Provider] - Time of Disposition: 04:48
[2025-01-14] MEDS: methylPREDNISolone SOD SUCC 125 MG VIAL IM (04:55)
[2025-01-14 05:15] VITALS: BP 163/97; PULSE 88; O2SAT 99
--- NOTE | 2025-01-14 05:18 | PC.NURSE ---
given ice chips
== END 2025-01-14 05:17 | disposition home or self-care (01) ==
PROVIDERS: Emergency Provider Internal Medicine Critical Care Medicine; PCP Family Medicine
DX: T78.40XA Allergy, unspecified, initial encounter (principal); J44.9 Chronic obstructive pulmonary disease, unspecified; Z87.891 Personal history of nicotine dependence
CPT/HCPCS: 96372; 99283; J2919